=== PATIENT | female | born 1965 | race Caucasian/White ===

== ENCOUNTER 2020-06-21 11:27 | Outpatient (REF) | payer BC, SELFPAY | END 2020-06-21 11:28 | disposition home or self-care (01) | LOC: HO.HMGCLDS 11:27 | PROVIDERS: PCP Nurse Practitioner Family; Visit Provider Internal Medicine | DX: Z20.828 Contact with and (suspected) exposure to other viral communicable diseases (principal) | CPT/HCPCS: C9803; U0003 ==

== ENCOUNTER 2020-06-27 13:06 | Day surgery (SDC) | payer BC, SELFPAY ==
[2020-06-21 15:26] VITALS: BMI 23.0
--- NOTE | 2020-06-26 09:40 | HO.ANESPROP2 ---
Documented by User: Stephanie Baker 06/26/20 09:41 HPI - Anesthesia Eval Consult details Narrative: 54yo F for Colonoscopy [facility] Past Medical History Medical History Arthritis GERD (gastroesophageal reflux disease) History of palpitations History of postoperative nausea and vomiting Hx of malignant melanoma Lab test negative for COVID-19 virus Surgical History Surgical History H/O colonoscopy Hx of arthroscopy of knee Hx of breast augmentation Hx of melanoma excision Social History Social History Smoking Status: Former smoker Smoked in Last 30 Days: No Smoking Quit Date: age 19 Use of substances other than those prescribed or required for medical reasons: No Advance Directives Information Provided: No Recently lost weight without trying: No Meds Allergies Allergy/AdvReac Type Severity Reaction Status Date / Time No Known Allergies Allergy Verified 06/21/20 15:33 Home Medications Medication Instructions Recorded Confirmed Type fluticasone propionate [Flonase] 1 spray INTRANASAL DAILY PRN 06/21/20 06/21/20 History omeprazole magnesium [Prilosec OTC] 20 mg PO DAILY PRN 06/21/20 06/21/20 History Exam Exam Date and Time: June 26, 2020 0940 Height,Weight and Vital Signs: Height 5 ft Weight 53.524 kg Pertinent Lab Results Pertinent Lab Results: Laboratory Tests 04/03/20 08:05 Sodium 139 Potassium 4.7 Chloride 105 BUN 16 Creatinine 0.77 Assessment and Plan Assessment Anesthesia Assessment: Chart Reviewed Documented by User: Lang Salomon MD 06/27/20 13:40 [facility] Past Medical History Medical History Arthritis GERD (gastroesophageal reflux disease) History of palpitations History of postoperative nausea and vomiting Hx of malignant melanoma Lab test negative for COVID-19 virus Surgical History Surgical History H/O colonoscopy Hx of arthroscopy of knee Hx of breast augmentation Hx of melanoma excision Social History Social History Smoking Status: Former smoker Smoked in Last 30 Days: No Smoking Quit Date: age 19 Use of substances other than those prescribed or required for medical reasons: No Advance Directives Information Provided: No Recently lost weight without trying: No Meds Allergies Allergy/AdvReac Type Severity Reaction Status Date / Time No Known Allergies Allergy Verified 06/21/20 15:33 Home Medications Medication Instructions Recorded Confirmed Type fluticasone propionate [Flonase] 1 spray INTRANASAL DAILY PRN 06/21/20 06/21/20 History omeprazole magnesium [Prilosec OTC] 20 mg PO DAILY PRN 06/21/20 06/21/20 History Exam Airway Mallampati Class: II TM Dist: >3cm Neck ROM: Full Loose/Missing/Broken Teeth: No Heart: rrr Lungs: nl Other: ao Assessment and Plan Assessment Anesthesia Assessment: Anesthesia Plan Discussed and Chart Reviewed Final Anesthetic Review NPO: Yes ASA Class: III Final Preanesthetic Review: No Changes in Pt Med Stat, Meds/Allgs Chart Reviewed, Consent Obtained/Reviewed and Anes Risks/Benef Reviewed Patient Risk: Low Procedure Risk: Low Anesthetic Plan Anesthetic Plan: MAC: Disposition: Standard PACU
[2020-06-27] MEDS: Scopolamine 1.5 MG PATCH.TD.3 TRANSDERMA (13:26)
[2020-06-27 13:32] VITALS: BP 115/72; PULSE 69; RESP 18; TEMP 36.8; O2SAT 100
--- NOTE | 2020-06-27 13:50 | MHC.SHP ---
Pre-Procedural Eval Section B Chief Complaint: Altered Bowel Functions Details of Present Illness: FH aneurysms Relevant Family History (Specify if Yes): Yes Relevant Social History: None Medical History: Significant History (melanoma) History of Previous Operations: Relevant previous surgery/procedure and date(s) (melanoma excision,arthroscopy) Allergies: Allergies Allergy/AdvReac Type Severity Reaction Status Date / Time No Known Allergies Allergy Verified 06/21/20 15:33 Review of Systems Sugical H&P ROS: Negative: Constitution, Cardiovascular, Respiratory, Neurological, Psychiatric, Hem-Onc, Allergic/Immunologic, Gastrointestinal, Genitourinary, Musculoskeletal, Integumentary, Endocrine and Eyes/Ears/Nose/Throat Exam Surgical H&P Exam: Normal: HEENT, Normal: Heart, Normal: Lungs, Normal: Extremities, Normal: Abdomen, Normal: Skin and Normal: Neurological Plan Diagnosis/Plan: Unchanged Patient has been examined and remains a candidate for the planned procedure
[2020-06-27] MEDS: Lactated Ringers 1,000 ML 100 ML IVCONT (13:52)
--- NOTE | 2020-06-27 13:52 | P.OP_ITS ---
Operative Note Operative Note Date of Service: 06/27/20 Narrative: Operative Information Procedure Description: Colonoscopy COLONOSCOPY Instrument: Olympus variable stiffness pediatric scope 190L Colonoscopy Monitoring: Vital signs and clinical assessment, continuous EKG monitoring, Pulse oximetry, Carbon Dioxide monitoring and blood pressure monitoring were done throughout the procedure. Colon withdrawal time was 6 minutes. Procedure: The patient was placed in the left lateral decubitis position and pre-procedure medications were administered. After a digital rectal examination of the ano-rectum, the video colonoscope was inserted into the rectum and advanced through the colon to the cecum/TI. The colonoscope was slowly withdrawn in a retrograde panoramic fashion and the colon mucosa was carefully examined including a retroflexed view of the rectum. Findings and interventions are described below. Procedure Difficulty:easy Findings: Terminal Ileum-normal Cecum:normal Ascending Colon: normal Transverse Colon -normal Descending Colon:normal Sigmoid Colon: normal Rectum: Retroflexion with small internal hemorrhoids, grade I Anorectum - normal Colon preparation: [place] Bowel Preparation Scale Right colon; 3 Transverse colon: 3 Left colon; 3 (0 = Unprepared colon segment with mucosa not seen due to solid stool that cannot be cleared. 1 = Portion of mucosa of the colon segment seen, but other areas of the colon segment not well seen due to staining, residual stool and/or opaque liquid. 2 = Minor amount of residual staining, small fragments of stool and/or opaque liquid, but mucosa of colon segment seen well. 3 = Entire mucosa of colon segment seen well with no residual staining, small fragments of stool or opaque liquid) Impression and Post Procedure Diagnosis: internal hemorrhoids Plan: High fiber diet leaflet Avoid straining at stool, epsom salts and sitz bath prn, anusol supps or cream prn Repeat Colonoscopy in 10 years or earlier if clinically indicated Above findings were reviewed with the patient and relevant handouts were provided if indicated.
--- NOTE | 2020-06-27 13:52 | PM.OP ---
Brief Operative Note Date of Service: 06/27/20 Pre-op diagnosis: colon screen Post-op diagnosis: same Procedure: see op note Surgeon: Blanca Rios MD Anesthesia: MAC Estimated blood loss (mL): 0 Condition: stable Disposition: PACU
[2020-06-27 14:15] VITALS: BP 101/58; PULSE 72; RESP 16; TEMP 36.1; O2SAT 99
[2020-06-27 14:30] VITALS: BP 115/75; PULSE 69; RESP 16; O2SAT 99
== END 2020-06-27 15:08 | disposition home or self-care (01) ==
PROVIDERS: PCP Nurse Practitioner Family; Visit Provider Internal Medicine Gastroenterology
PROC: 0DJD8ZZ Inspection of Lower Intestinal Tract, Via Natural or Artificial Opening Endoscopic (ICD-10-PCS; CPT 45378; principal; 2020-06-27 14:10)
DX: R19.4 Change in bowel habit (principal); K64.0 First degree hemorrhoids; K21.9 Gastro-esophageal reflux disease without esophagitis; Z85.820 Personal history of malignant melanoma of skin; Z87.891 Personal history of nicotine dependence; Z79.899 Other long term (current) drug therapy
CPT/HCPCS: 45378

== ENCOUNTER → 2020-07-25 08:56 | Outpatient (BNVA) | payer BC, SELFPAY | PROVIDERS: PCP Nurse Practitioner Family; Visit Provider Physician Assistant | DX: Z76.89 Persons encountering health services in other specified circumstances (principal) ==

== ENCOUNTER 2021-02-04 08:23 | Outpatient (REF) | payer BC, SELFPAY ==
[2021-02-04 12:02] LABS: Alanine Aminotransferase 16 U/L (0-31); Alkaline Phosphatase 60 U/L (39-117); Anion Gap 13 (12-20); Aspartate Amino Transferase 15 U/L (5-31); Bilirubin Total 1.2 mg/dL (0.0-1.0); Blood Urea Nitrogen 17 mg/dL (9-16); Calcium 8.8 mg/dL (8.4-10.2); Carbon Dioxide 25 mmol/L (22-29); Chloride 107 mmol/L (96-108); Cholesterol 151 mg/dL; Estimated Glomerular Filt Rate > 60; Glucose Fasting 93 mg/dL (60-99); HDL Cholesterol 69 mg/dL; LDL Cholesterol Calculated 67 mg/dl; Potassium 4.5 mmol/L (3.3-5.1); Sodium 140 mmol/L (135-145); Total Protein 6.6 g/dL (6.5-8.0); Triglycerides 77 mg/dL
[2021-02-04 12:09] LABS: TSH reflex Free T4 1.46 uIU/mL (0.32-4.0); Vitamin D 25-OH Total 30.3 ng/mL (>30)
== END 2021-02-04 08:24 | disposition home or self-care (01) ==
LOC: HO.HMGCLDS 08:23
PROVIDERS: PCP Nurse Practitioner Family; Visit Provider Nurse Practitioner Family
DX: Z00.00 Encounter for general adult medical examination without abnormal findings (principal); Z78.0 Asymptomatic menopausal state
CPT/HCPCS: 36415; 80053; 80061; 82306; 84443

== ENCOUNTER 2021-07-01 08:19 | Outpatient (REF) | payer BC, SELFPAY ==
[2021-07-01 11:45] LABS: Appearance Urine CLOUDY; Color Urine YELLOW; Glucose Urine UA NEG (NEG); Leukocyte Esterase Urine NEG (NEG); Nitrite Urine NEG (NEG); Specific Gravity - Urine 1.025 (1.005-1.025); UACC Culture Trigger NO; Urine Blood TRACE (NEG); Urine Ketones NEG (NEG); Urine Protein NEG (NEG-TRACE)
[2021-07-01 12:03] LABS: Alanine Aminotransferase 19 U/L (0-31); Albumin Level 4.2 g/dL (3.5-5.0); Alkaline Phosphatase 58 U/L (39-117); Anion Gap 14 (12-20); Aspartate Amino Transferase 15 U/L (5-31); Bacteria Urine 1+ /LPF; Bilirubin Total 0.8 mg/dL (0.0-1.0); Blood Urea Nitrogen 14 mg/dL (9-16); Calcium 9.8 mg/dL (8.4-10.2); Calcium Oxalate Crystals Urine 1+ /LPF; Carbon Dioxide 24 mmol/L (22-29); Chloride 105 mmol/L (96-108); Cholesterol 198 mg/dL; Estimated Glomerular Filt Rate > 60; Glucose Fasting 96 mg/dL (60-99); HDL Cholesterol 71 mg/dL; LDL Cholesterol Calculated 109 mg/dl; Potassium 4.5 mmol/L (3.3-5.1); Sodium 138 mmol/L (135-145); Squamous Epithelial Cell Urine 2+ /LPF; Total Protein 7.2 g/dL (6.5-8.0); Triglycerides 92 mg/dL
[2021-07-01 12:04] LABS: Mucus Urine TRACE /LPF; WBC Urine 0-2 /HPF (0-4)
[2021-07-01 12:09] LABS: TSH reflex Free T4 1.39 uIU/mL (0.32-4.0)
== END 2021-07-01 08:20 | disposition home or self-care (01) ==
LOC: HO.HMGCLDS 08:19
PROVIDERS: Visit Provider Nurse Practitioner Family
DX: Z00.00 Encounter for general adult medical examination without abnormal findings (principal)
CPT/HCPCS: 36415; 80053; 80061; 81001; 84443

== ENCOUNTER 2021-07-08 14:50 | Outpatient (REF) | payer BC, SELFPAY ==
--- NOTE | ~2021-07-08 | MM_ITS ---
EXAMINATION: BONE DENSITOMETRY CLINICAL INDICATION: Asymptomatic menopausal state. COMPARISON: None (current study represents initial baseline exam). TECHNIQUE: Using a VidAngel DXA System (software version: 13.1) manufactured by [employer], dual-energy x-ray absorptiometry was performed of the lumbar spine and left hip. The images are of good technical quality. Summary results are attached. FINDINGS: AP SPINE L1-L4: BMD 1.149 g/cm2, Z-score 0.8, T-score -0.3, normal. LEFT FEMUR, NECK: BMD 0.738 g/cm2, Z-score -1.0, T-score -2.2, osteopenia. LEFT FEMUR, TOTAL: BMD 0.819 g/cm2, Z-score -0.6, T-score -1.5, osteopenia. IDENTIFIED RISK FACTORS: Menopause, family history (parental hip fracture), history of fracture (adult), rheumatoid arthritis. HISTORY OF FRACTURE: Clavicle. MEDICATIONS: Calcium or multivitamin, ERT/SERMS. MM/XR DEXA axial skeleton IMPRESSION: 1. DIAGNOSIS: Osteopenia based on the lowest T-score value of -2.2 in the femoral neck applying World Health Organization criteria. 2. 10-YEAR FRACTURE RISK PREDICTION, FRAX: Major osteoporotic fracture (clinical spine, forearm, hip or shoulder) 33.5%. Hip fracture 3.5%. 3. Treatment Recommendations: NOF guidelines recommend consideration for treatment in postmenopausal women and men age 50 and older presenting with the following: -A hip or vertebral (clinical or morphometric) fracture. -T-score less than or equal to -2.5 at the femoral neck or spine after appropriate evaluation to exclude secondary causes. -Low bone mass at the hip or spine and a 10-year fracture probability by FRAX of greater than or equal to 3% for hip fracture or greater than or equal to 20% for major osteoporotic fracture based on the [place] adapted WHO algorithm. 4. Other Recommendations: All treatment decisions require clinical judgment and consideration of individual patient factors, including patient preferences, comorbidities, previous drug use, risk factors not captured in the FRAX model (e.g. frailty, falls, vitamin D deficiency, increased bone turnover, interval significant decline in bone density) and possible under or overestimation of fracture risk by FRAX. Additional medical evaluation for secondary cause of low bone mineral density may be appropriate. FUTURE SCAN RECOMMENDATION: People with diagnosed cases of osteoporosis or at high risk for fracture should have regular bone mineral density tests. For patients eligible for Medicare, routine testing is allowed once every 2 years. The testing frequency can be increased to one year for patients who have rapidly progressing disease, those who are receiving or discontinuing medical therapy to restore bone mass, or have additional risk factors.
== END 2021-07-08 14:51 | disposition home or self-care (01) ==
LOC: HO.MAMMO 14:50
PROVIDERS: Visit Provider Nurse Practitioner Family
DX: Z13.820 Encounter for screening for osteoporosis (principal); M85.80 Other specified disorders of bone density and structure, unspecified site; Z78.0 Asymptomatic menopausal state; M06.9 Rheumatoid arthritis, unspecified; Z87.81 Personal history of (healed) traumatic fracture; Z79.899 Other long term (current) drug therapy
CPT/HCPCS: 77080

== ENCOUNTER 2022-01-28 13:43 | Outpatient (REF) | payer BC, SELFPAY ==
[2022-01-29 17:28] LABS: H Pylori Breath Test Negative (Negative)
== END 2022-01-28 13:44 | disposition home or self-care (01) ==
LOC: HO.LNP 13:43
PROVIDERS: Visit Provider Physician Assistant
DX: A04.8 Other specified bacterial intestinal infections (principal)
CPT/HCPCS: 83013

== ENCOUNTER 2022-04-09 07:17 | Outpatient (REF) | payer OTHER, SELFPAY ==
[2022-04-09 07:23] LABS: MANUAL DIFF FLAG NO
[2022-04-09 07:40] LABS: Basophils Absolute Auto 0.1 X10*3/uL (0.0-0.2); Basophils Percent Auto 0.9 % (0-2); Eosinophils Absolute Auto 0.2 X10*3/uL (0.0-0.4); Eosinophils Percent Auto 2.7 % (0-4); Hematocrit 40.3 % (37.0-47.0); Hemoglobin 13.3 g/dl (12.0-16.0); Imm Gran Abs Auto 0.02 X10*3/uL (0.00-0.03); Imm Gran Pct Auto 0.3 % (0.0-0.4); Lymphocytes Absolute Auto 2.1 X10*3/uL (1.2-4.9); Lymphocytes Percent Auto 35.2 % (20-40); Mean Corpuscular Volume 87.8 fL (80.0-98.0); Mean Platelet Volume 9.8 fL (9.4-12.3); Monocytes Absolute Auto 0.5 X10*3/uL (0.1-1.2); Neutrophils Absolute Auto 3.1 x10*3/uL (2.0-8.3); Neutrophils Percent Auto 52.9 % (45-73); Platelet Count 282 X10*3/uL (160-400); Red Blood Count 4.59 X10*6/uL (4.20-5.50); Red Cell Distribution Width 12.6 % (11.0-16.0); White Blood Count 5.9 X10*3/uL (4.8-10.8)
[2022-04-09 08:33] LABS: Alanine Aminotransferase 20 U/L (0-31); Alkaline Phosphatase 57 U/L (39-117); Anion Gap 15 (12-20); Aspartate Amino Transferase 18 U/L (5-31); Bilirubin Total 0.9 mg/dL (0.0-1.0); Blood Urea Nitrogen 10 mg/dL (9-16); Calcium 9.2 mg/dL (8.4-10.2); Carbon Dioxide 21 mmol/L (22-29); Chloride 108 mmol/L (96-108); Cholesterol 191 mg/dL; Estimated Glomerular Filt Rate > 60; Glucose Fasting 87 mg/dL (60-99); HDL Cholesterol 68 mg/dL; LDL Cholesterol Calculated 101 mg/dl; Potassium 4.1 mmol/L (3.3-5.1); Sodium 140 mmol/L (135-145); Total Protein 6.7 g/dL (6.5-8.0); Triglycerides 113 mg/dL
[2022-04-09 08:42] LABS: Appearance Urine Clear; Color Urine Yellow; Glucose Urine UA Negative (Negative); Leukocyte Esterase Urine Negative (Negative); Nitrite Urine Negative (Negative); Specific Gravity - Urine 1.015 (1.005-1.025); Urine Blood Negative (Negative); Urine Ketones Negative (Negative); Urine Protein Negative (Neg-Trace)
[2022-04-09 08:55] LABS: Vitamin D 25-OH Total 42.4 ng/mL (>30)
== END 2022-04-09 07:18 | disposition home or self-care (01) ==
LOC: HO.LAB 07:17
PROVIDERS: PCP Nurse Practitioner Family; Visit Provider Nurse Practitioner Family
DX: Z78.0 Asymptomatic menopausal state (principal)
CPT/HCPCS: 36415; 80053; 80061; 81003; 82306; 84443; 85025

== ENCOUNTER 2022-12-10 07:28 | Outpatient (REF) | payer OTHER, SELFPAY ==
[2022-12-10 11:17] LABS: MANUAL DIFF FLAG NO
[2022-12-10 11:25] LABS: Appearance Urine Cloudy; Color Urine Yellow; Glucose Urine UA Negative (Negative); Leukocyte Esterase Urine Moderate (2+) (Negative); Nitrite Urine Negative (Negative); PH 5.5 (5.0-9.0); UMIC TRIGGER UACC YES; Urine Blood Small (1+) (Negative); Urine Ketones 15 mg/dL (Negative); Urine Protein Negative (Neg-Trace)
[2022-12-10 11:34] LABS: Basophils Absolute Auto 0.1 X10*3/uL (0.0-0.2); Basophils Percent Auto 0.9 % (0-2); Eosinophils Absolute Auto 0.1 X10*3/uL (0.0-0.4); Eosinophils Percent Auto 2.4 % (0-4); Hematocrit 42.9 % (37.0-47.0); Hemoglobin 13.7 g/dl (12.0-16.0); Imm Gran Abs Auto 0.01 X10*3/uL (0.00-0.03); Imm Gran Pct Auto 0.2 % (0.0-0.4); Lymphocytes Percent Auto 36.6 % (20-40); Mean Corpuscular HGB Conc 31.9 g/dl (31.0-35.0); Mean Corpuscular Hemoglobin 28.4 pg (27.0-33.0); Mean Platelet Volume 10.6 fL (9.4-12.3); Monocytes Absolute Auto 0.5 X10*3/uL (0.1-1.2); Monocytes Percent Auto 8.7 % (2-11); Neutrophils Absolute Auto 2.8 x10*3/uL (2.0-8.3); Neutrophils Percent Auto 51.2 % (45-73); Platelet Count 304 X10*3/uL (160-400); Red Blood Count 4.82 X10*6/uL (4.20-5.50); Red Cell Distribution Width 12.4 % (11.0-16.0); White Blood Count 5.4 X10*3/uL (4.8-10.8)
[2022-12-10 11:46] LABS: Bacteria Urine 4+ (None Seen); RBC Urine 0-2 /HPF (0-2); UACC Culture Trigger YES; WBC Urine >50 /HPF (0-5)
[2022-12-10 12:47] LABS: Alanine Aminotransferase 19 U/L (0-31); Albumin Level 3.9 g/dL (3.5-5.0); Alkaline Phosphatase 51 U/L (39-117); Anion Gap 12 (12-20); Aspartate Amino Transferase 15 U/L (5-31); Bilirubin Total 1.1 mg/dL (0.0-1.0); Blood Urea Nitrogen 11 mg/dL (9-16); Calcium 9.3 mg/dL (8.4-10.2); Carbon Dioxide 24 mmol/L (22-29); Chloride 108 mmol/L (96-108); Cholesterol 177 mg/dL; Estimated Glomerular Filt Rate > 60; Glucose Fasting 85 mg/dL (60-99); HDL Cholesterol 62 mg/dL; LDL Cholesterol Calculated 99 mg/dl; Potassium 4.5 mmol/L (3.3-5.1); Sodium 139 mmol/L (135-145); Total Protein 6.4 g/dL (6.5-8.0); Triglycerides 82 mg/dL
[2022-12-10 12:51] LABS: TSH reflex Free T4 2.49 uIU/mL (0.32-4.0); Vitamin D 25-OH Total 77.5 ng/mL (>30)
== END 2022-12-10 07:29 | disposition home or self-care (01) ==
LOC: HO.HMGCLDS 07:28
PROVIDERS: PCP Nurse Practitioner Family; Visit Provider Nurse Practitioner Family
DX: Z00.00 Encounter for general adult medical examination without abnormal findings (principal); Z78.0 Asymptomatic menopausal state
CPT/HCPCS: 36415; 80053; 80061; 81001; 82306; 84443; 85025; 87086; 87147

== ENCOUNTER 2023-08-16 13:25 | Outpatient (AMB) | payer OTHER, SELFPAY ==
--- NOTE | 2023-08-16 13:31 | MHC.PC.OV ---
Vital Signs 08/16/23 13:33 Height 5 ft Weight 127 lb BMI 24.8 BP 150/90 H Blood Pressure Location Rt brachial Position Sitting Pulse 83 Pulse Source Pulse Oximeter Pulse Oximetry (%) 99 Oxygen Delivery Method Room Air Intake Visit Reasons: Annual PE Intake Note: Patient here for physical exam. Menopause issues, weight gain and blood pressure concerns. Last mammo: 2022 normal Last pap:06/2023 normal Allergies No Known Allergies Allergy (Verified 08/16/23 13:37) Medication List - Last Reconciled 08/16/23 by DEBORAH Mendoza-ADRIANA famotidine (Pepcid) 40 mg PO BEDTIME fluticasone propionate 50 mcg/actuation 1 spray intranasal DAILY PRN levonorgestrel (Mirena) intrauterine norethindrone ac-eth estradiol 1-5 mg-mcg 1 tab PO DAILY propranolol ER 60 mg PO BEDTIME Tobacco use date assessed: 08/16/23 Dental Screening Dental Screen Date: 08/16/23 Did you have a dental visit in the last 12 months?: Yes Did you have a dental problem in the last 6 months where you did not have access to dental care?: No Was dental information given to patient?: Patient has dentist HPI Annual PE HPI Details Pt is here for a PE. Will order labs. Colon screen is up to date. Mammo is up to date. Has a assistant store manager trainee. Pt's blood pressure is elevated today. She is very anxious. Pt reports palpitations as well. Will start propranolol 60mg. Denies chest pain, shortness of breath, headache, dizziness, and blurred vision. ? anxiety component/menopausal component as well. Pt will also follow up with her [employer]IL [employer] BR[employer] MACHINE [facility] Medical History Arthritis GERD (gastroesophageal reflux disease) History of palpitations History of postoperative nausea and vomiting Hx of malignant melanoma Lab test negative for COVID-19 virus Patellofemoral chondrosis of right knee Sinusitis Surgical History H/O colonoscopy Hx of arthroscopy of knee Hx of breast augmentation Hx of melanoma excision Family History Other Mental health disorder Social History Housing: House Patient Tobacco Use Status: Former Tobacco user (quit at age 20 ) Tobacco use type: Cigarette Years Smoked: 2 years e-Cigarette/Vaping Use: Never Used Second Hand Smoke Exposure: No Current occupational status: employed Cognitive needs: No Hearing needs: No Vision needs: No Questionnaire Thrive Questionnaire Date Thrive assessed: 04/14/22 AUDIT C Alcohol Use Questionnaire (AUDIT-C) 1. How often do you have a drink containing alcohol?: 2-4 times a month 2. How many drinks containing alcohol do you have on a typical day when you are drinking?: 1 or 2 3. How often do you have six or more drinks on one occasion?: Never Total Score: 2 Score Reviewed/Action Taken: No CAROLYN-7 AMB Questionnaire CAROLYN-7 Date CAROLYN - 7 assessed: 04/14/22 Source: Developed by Drs. Christofer Enrique, Alexa Hallman, Chaparro Muñoz and colleagues, with an educational lashae from [employer]. Review of Systems Const Denies chills and Denies fever(s) Eyes Denies blurry vision ENT Denies vertigo, Denies dizziness and Denies sore throat Card Denies chest pain at rest, Denies chest pain with activity, Denies diaphoresis, Denies dyspnea and Denies dyspnea on exertion Resp Denies cough, Denies dyspnea, Denies dyspnea on exertion and Denies wheezing GI Denies abdominal pain, Denies melena, Denies hematochezia, Denies constipation, Denies diarrhea and Denies loose stools Denies hematuria Musc Denies numbness and Denies tingling Skin/Breast Denies lesions Neuro Denies vertigo, Denies dizziness, Denies numbness and Denies tingling Psych Denies anxiety, Denies depression, Denies homicidal ideation, Denies suicidal ideation and Denies other (substance abuse) Aller/Immun Denies wheezing Physical exam (Primary Care) Vital Signs: Last Vital Signs Pulse 83 08/16/23 13:33 BP 150/90 H 08/16/23 13:33 Pulse Ox 99 08/16/23 13:33 Oxygen Delivery Method Room Air 08/16/23 13:33 BMI result Body Mass Index 24.8 Tobacco/Smoking Status: Tobacco use Status Tobacco use date assessed 08/16/23 08/16/23 13:41 Patient Tobacco Use Status Former Tobacco user (quit at 08/16/23 13:33 age 20 ) Tobacco use type Cigarette 08/16/23 13:41 e-Cigarette/Vaping Use Never Used 08/16/23 13:33 Thrive Assessment: Date of Thrive Assessment Date Thrive assessed 04/14/22 08/16/23 13:33 Const General: cooperative Nutritional Appearance: well nourished Orientation/consciousness: patient oriented x3 HENMT Head: Yes normal to inspection, Yes normocephalic and Yes atraumatic Ears: TM's normal bilaterally Eyes General: appearance normal, both eyes and all related structures Alignment and Position: alignment normal and position normal Neck Neck: Yes normal visual inspection and Yes no lymphadenopathy Thyroid: Thyroid normal Resp Effort & Inspection: normal respiratory effort Auscultation: clear to auscultation bilaterally Cardio Rate: regular rate Rhythm: regular rhythm Heart sounds: S1 normal heart sound present, S2 normal heart sound present and no murmurs GI Palpation (GI): Soft to palpation and nontender Auscultation: normal bowel sounds Skin Rashes: no rashes Neuro General: patient oriented x3, moves all extremities, no focal motor deficits and deep tendon reflexes 2+ bilaterally Romberg Test: Negative Psych Appearance: grossly normal Mental Status: mental status grossly normal Speech and movement: Normal speech and movement present Affect: normal affect Attitude: cooperative Thought process: Normal thought process present Thought content: Normal thought content present Insight: Good insight present (Psych) Judgement: Good judgement present (Psych) Assessment and Plan Assessment & Plan (1) Physical exam: Code(s): Z00.00 - Encounter for general adult medical examination without abnormal findings Plan: Labs ordered (2) Vitamin D deficiency: Code(s): E55.9 - Vitamin D deficiency, unspecified Plan: Labs ordered (3) HTN (hypertension): Code(s): I10 - Essential (primary) hypertension Plan: starting propranolol (4) Palpitations: Code(s): R00.2 - Palpitations Plan The patient agreed to the use of a medical physics researcher for this encounter. Scribed for NOHEMI Ruiz by greyson Valera scribe, on 08/16/2023 at 13:40 EST. Orders: Orders Complete Blood Count Auto Diff Today Z00.00 - Encounter for general adult medical examination without abnormal findings Comprehensive [place]. Panel Fast Today Z00.00 - Encounter for general adult medical examination without abnormal findings UA CC w/rflx Micro + Cult Today Z00.00 - Encounter for general adult medical examination without abnormal findings Lipid Panel Today Z00.00 - Encounter for general adult medical examination without abnormal findings Vitamin D 25-OH Total Today E55.9 - Vitamin D deficiency, unspecified TSH reflex Free T4 Today Z00.00 - Encounter for general adult medical examination without abnormal findings Medications: New propranolol ER 60 mg PO BEDTIME 90 caps 0RF Coding Level of Care Code Est Pt Prev Care 40-64y(08237) Diagnoses Physical exam Z00.00 Vitamin D deficiency E55.9 HTN (hypertension) I10 Palpitations R00.2
[2023-08-16 13:33] VITALS: BP 150/90; PULSE 83; O2SAT 99; BMI 24.8
== END 2023-08-16 14:09 | disposition home or self-care (01) ==
PROVIDERS: PCP Nurse Practitioner Family; Visit Provider Nurse Practitioner Family
DX: Z00.00 Encounter for general adult medical examination without abnormal findings (principal); E55.9 Vitamin D deficiency, unspecified; I10 Essential (primary) hypertension; R00.2 Palpitations
CPT/HCPCS: 99396

== ENCOUNTER 2023-09-14 08:44 | Outpatient (AMB) | payer OTHER, SELFPAY ==
--- NOTE | 2023-09-14 07:06 | MHC.PC.OV ---
Intake Visit Reasons: Followup meds iPhone Allergies No Known Allergies Allergy (Verified 08/16/23 13:37) Medication List - Last Reconciled 09/14/23 by NOHEMI Mendoza famotidine (Pepcid) 40 mg PO BEDTIME fluticasone propionate 50 mcg/actuation 1 spray intranasal DAILY PRN levonorgestrel (Mirena) intrauterine norethindrone ac-eth estradiol 1-5 mg-mcg 1 tab PO DAILY prazosin 1 mg PO BEDTIME propranolol ER 60 mg PO BEDTIME Tobacco use date assessed: 08/16/23 HPI Followup meds iPhone HPI Details Pt c/o increased anxiety. She reports having panic attacks at night that wake her up out of a sleep. She also reports vivid dreams. Will send prazosin 1mg to try. Denies any SI and HI. Pt will contact me in approx 2 weeks with how the med is working. COUNT INCLUDES THE [facility] Medical History Patellofemoral chondrosis of right knee Sinusitis History of postoperative nausea and vomiting Hx of malignant melanoma Arthritis Lab test negative for COVID-19 virus GERD (gastroesophageal reflux disease) History of palpitations Surgical History H/O colonoscopy Hx of arthroscopy of knee Hx of breast augmentation Hx of melanoma excision Family History Other Mental health disorder Social History Housing: House Patient Tobacco Use Status: Former Tobacco user (quit at age 20 ) Tobacco use type: Cigarette Years Smoked: 2 years e-Cigarette/Vaping Use: Never Used Second Hand Smoke Exposure: No Current occupational status: employed Cognitive needs: No Hearing needs: No Vision needs: No Questionnaire Thrive Questionnaire Date Thrive assessed: 04/14/22 CAROLYN-7 AMB Questionnaire CAROLYN-7 Date CAROLYN - 7 assessed: 04/14/22 Source: Developed by Drs. Christofer Enrique, Alexa Hallman, Chaparro Muñoz and colleagues, with an educational lashae from [employer]. Review of Systems Const Reports as per HPI Physical exam (Primary Care) Tobacco/Smoking Status: Tobacco use Status Tobacco use date assessed 08/16/23 09/14/23 07:10 Patient Tobacco Use Status Former Tobacco user (quit at 09/14/23 07:10 age 20 ) Tobacco use type Cigarette 09/14/23 07:10 e-Cigarette/Vaping Use Never Used 09/14/23 07:10 Thrive Assessment: Date of Thrive Assessment Date Thrive assessed 04/14/22 09/14/23 07:10 Const General: cooperative Orientation/consciousness: patient oriented x3 Neuro General: patient oriented x3 Psych Appearance: grossly normal Mental Status: mental status grossly normal Speech and movement: Clear speech present Affect: normal affect Attitude: cooperative Thought process: Normal thought process present Thought content: Normal thought content present Insight: Good insight present (Psych) Judgement: Good judgement present (Psych) Telehealth Telehealth Location of provider rendering services: practice address Location of patient: address on file Patient Identification confirmed using: Name, : Yes Telehealth method: video Patient verbally consented to treatment: Yes Patient verbally consented to billing insurance company: Yes Patient informed of any privacy concerns related to visit: Yes Minutes spent on Phone/Video with Pt.: 10 Assessment and Plan Assessment & Plan (1) Panic attacks: Code(s): F41.0 - Panic disorder [episodic paroxysmal anxiety] Plan: start prazosin 1mg qhs. pt will contact me in approx 2 weeks with how she is doing Plan The patient agreed to the use of a manager medical for this encounter. Scribed for NOHEMI Ruiz by Haritha Rodriguez manager medical, on 09/14/2023 at 07:05 EST. Medications: New prazosin 1 mg PO BEDTIME 30 caps 2RF Coding Level of Care Code Tele Est Pt Level 3 (73538) Diagnoses Panic attacks F41.0
== END 2023-09-14 14:29 | disposition home or self-care (01) ==
LOC: HO.HMGC 08:44
PROVIDERS: PCP Nurse Practitioner Family; Visit Provider Nurse Practitioner Family
DX: F41.0 Panic disorder [episodic paroxysmal anxiety] (principal)
CPT/HCPCS: 99213

== ENCOUNTER 2023-10-15 07:40 | Outpatient (REF) | payer OTHER, SELFPAY ==
[2023-10-15 07:51] LABS: MANUAL DIFF FLAG NO
[2023-10-15 08:08] LABS: Appearance Urine Clear; Color Urine Yellow; Glucose Urine UA Negative (Negative); Leukocyte Esterase Urine Trace (Negative); Nitrite Urine Negative (Negative); PH 5.5 (5.0-9.0); Specific Gravity - Urine 1.025 (1.005-1.025); UMIC TRIGGER UACC YES; Urine Blood Trace (Negative); Urine Ketones Negative (Negative); Urine Protein Negative (Neg-Trace)
[2023-10-15 08:08] LABS: Basophils Absolute Auto 0.1 X10*3/uL (0.0-0.2); Basophils Percent Auto 0.9 % (0-2); Eosinophils Absolute Auto 0.1 X10*3/uL (0.0-0.4); Eosinophils Percent Auto 1.7 % (0-4); Hematocrit 41.7 % (37.0-47.0); Hemoglobin 13.4 g/dl (12.0-16.0); Imm Gran Abs Auto 0.02 X10*3/uL (0.00-0.03); Imm Gran Pct Auto 0.3 % (0.0-0.4); Lymphocytes Absolute Auto 1.9 X10*3/uL (1.2-4.9); Lymphocytes Percent Auto 32.7 % (20-40); Mean Corpuscular HGB Conc 32.1 g/dl (31.0-35.0); Mean Corpuscular Volume 87.2 fL (80.0-98.0); Mean Platelet Volume 9.8 fL (9.4-12.3); Monocytes Absolute Auto 0.5 X10*3/uL (0.1-1.2); Monocytes Percent Auto 8.9 % (2-11); Neutrophils Absolute Auto 3.2 x10*3/uL (2.0-8.3); Neutrophils Percent Auto 55.5 % (45-73); Platelet Count 284 X10*3/uL (160-400); Red Blood Count 4.78 X10*6/uL (4.20-5.50); Red Cell Distribution Width 12.4 % (11.0-16.0); White Blood Count 5.7 X10*3/uL (4.8-10.8)
[2023-10-15 08:13] LABS: Bacteria Urine 2+ (None Seen); UACC Culture Trigger YES; WBC Urine 21-50 /HPF (0-5)
[2023-10-15 08:41] LABS: Alanine Aminotransferase 20 U/L (0-31); Albumin Level 3.9 g/dL (3.5-5.0); Alkaline Phosphatase 51 U/L (39-117); Anion Gap 10 (12-20); Aspartate Amino Transferase 16 U/L (5-31); Bilirubin Total 0.9 mg/dL (0.0-1.0); Blood Urea Nitrogen 13 mg/dL (9-16); Calcium 9.1 mg/dL (8.4-10.2); Carbon Dioxide 26 mmol/L (22-29); Chloride 109 mmol/L (96-108); Cholesterol 186 mg/dL (<200); Estimated Glomerular Filt Rate > 60; Glucose Fasting 99 mg/dL (60-99); HDL Cholesterol 65 mg/dL (>40); LDL Cholesterol Calculated 103 mg/dL (<100); Potassium 3.8 mmol/L (3.3-5.1); Sodium 141 mmol/L (135-145); Total Protein 6.7 g/dL (6.5-8.0); Triglycerides 92 mg/dL (<150)
[2023-10-15 09:00] LABS: TSH reflex Free T4 2.52 uIU/mL (0.32-4.0); Vitamin D 25-OH Total 45.8 ng/mL (>30)
== END 2023-10-15 07:41 | disposition home or self-care (01) ==
LOC: HO.LAB 07:40
PROVIDERS: PCP Nurse Practitioner Family; Visit Provider Nurse Practitioner Family
DX: Z00.00 Encounter for general adult medical examination without abnormal findings (principal); E55.9 Vitamin D deficiency, unspecified; Z78.0 Asymptomatic menopausal state
CPT/HCPCS: 36415; 80053; 80061; 81001; 82306; 84443; 85025; 87086

== ENCOUNTER 2023-10-20 07:28 | Outpatient (REF) | payer OTHER, SELFPAY ==
[2023-10-20 11:41] LABS: Appearance Urine Clear; Color Urine Yellow; Glucose Urine UA Negative (Negative); Leukocyte Esterase Urine Negative (Negative); Nitrite Urine Negative (Negative); PH 5.5 (5.0-9.0); Specific Gravity - Urine 1.025 (1.005-1.025); Urine Blood Negative (Negative); Urine Ketones Negative (Negative); Urine Protein Negative (Neg-Trace)
== END 2023-10-20 07:29 | disposition home or self-care (01) ==
LOC: HO.HMGCLDS 07:28
PROVIDERS: PCP Nurse Practitioner Family; Visit Provider Nurse Practitioner Family
DX: R30.0 Dysuria (principal)
CPT/HCPCS: 81003; 87086

== ENCOUNTER 2023-10-20 08:02 | Outpatient (AMB) | payer OTHER, SELFPAY ==
[2023-10-20 08:12] VITALS: BP 138/82; PULSE 64; O2SAT 99; BMI 24.8
--- NOTE | 2023-10-20 08:12 | AM.OFFWIN_ITS ---
Intake Vital Signs 10/20/23 08:12 Height 5 ft Weight 127 lb BMI 24.8 BP 138/82 Blood Pressure Location Lt brachial Position Sitting Pulse 64 Pulse Source Pulse Oximeter Pulse Oximetry (%) 99 Intake Visit Reasons: EP back pain Intake Note: pt is here for co back pain, denies injury ongoing for 2 weeks and causing head ache in the back of her head Patient Tobacco Use Status: Former Tobacco user (quit at age 20 ) Allergies No Known Allergies Allergy (Verified 10/20/23 08:14) Do you need a note to return to daycare/school/sports/work: No HPI HPI Comments History of Present Illness Details 58 y/o female who presents to walk in [facility] with c/o back pain x 2 weeks. Pt reports pain is located thoracic region midline. Denies any injury or trauma. Reports using Heat pad with good relief. Denies bowel or bladder problems. [facility] Medical History Patellofemoral chondrosis of right knee Sinusitis History of postoperative nausea and vomiting Hx of malignant melanoma Arthritis Lab test negative for COVID-19 virus GERD (gastroesophageal reflux disease) History of palpitations Surgical History H/O colonoscopy Hx of arthroscopy of knee Hx of breast augmentation Hx of melanoma excision Family History Other Mental health disorder Social History Housing: House Patient Tobacco Use Status: Former Tobacco user (quit at age 20 ) Tobacco use type: Cigarette Years Smoked: 2 years e-Cigarette/Vaping Use: Never Used Second Hand Smoke Exposure: No Current occupational status: employed Cognitive needs: No Hearing needs: No Vision needs: No Review of Systems Const All systems reviewed & are unremarkable except as noted in HPI and below Physical Exam Vital Signs: Last Vital Signs Pulse 64 10/20/23 08:12 BP 138/82 10/20/23 08:12 Pulse Ox 99 10/20/23 08:12 BMI result Body Mass Index 24.8 Const General: comfortable and no acute distress Orientation/consciousness: patient oriented x3 Back/Spine/Pelvis Cervical Spine: cervical ROM normal Thoracic/Lumbar Spine: thoraco-lumbar ROM normal Neuro General: patient oriented x3, gait normal and moves all extremities Psych Speech and movement: Clear speech present Assessment & Plan Assessment & Plan (1) Back pain: Code(s): M54.9 - Dorsalgia, unspecified Qualifiers: Back pain location: thoracic back pain Back pain laterality: midline Chronicity: acute Qualified Code(s): M54.6 - Pain in thoracic spine Plan: - OTC Acetaminophen or NSAIDs - Heat pad - Rest - F/U with PCP for PT if indicated. Coding Level of Care Code Est Pt Level 3 (78272) Diagnoses Acute midline thoracic back pain M54.6 Back pain location: thoracic back pain Back pain laterality: midline Chronicity: acute Time Spent (min) 15
== END 2023-10-20 09:14 | disposition home or self-care (01) ==
PROVIDERS: PCP Nurse Practitioner Family; Visit Provider Nurse Practitioner Family
DX: M54.6 Pain in thoracic spine (principal)
CPT/HCPCS: 99213

== ENCOUNTER 2023-11-09 07:45 | Outpatient (AMB) | payer OTHER, SELFPAY ==
--- NOTE | 2023-11-09 07:25 | MHC.PC.OV ---
Intake Visit Reasons: follow up NN BP check Allergies No Known Allergies Allergy (Verified 11/09/23 07:27) Medication List - Last Reconciled 11/09/23 by DEBORAH MendozaADRIANA fluticasone propionate 50 mcg/actuation 1 spray intranasal DAILY PRN levonorgestrel (Mirena) intrauterine norethindrone ac-eth estradiol 1-5 mg-mcg 1 tab PO DAILY propranolol ER 60 mg PO BEDTIME Tobacco use date assessed: 08/16/23 Dental Screening Dental Screen Date: 08/16/23 HPI follow up NN BP check HPI Details HTN: Blood pressure is managed with propranolol 60mg. Pt reports that her blood pressure at home is stable. Denies chest pain, shortness of breath, headache, dizziness, and blurred vision. [facility] Medical History Patellofemoral chondrosis of right knee Sinusitis History of postoperative nausea and vomiting Hx of malignant melanoma Arthritis Lab test negative for COVID-19 virus GERD (gastroesophageal reflux disease) History of palpitations Surgical History H/O colonoscopy Hx of arthroscopy of knee Hx of breast augmentation Hx of melanoma excision Family History Other Mental health disorder Social History Housing: House Patient Tobacco Use Status: Former Tobacco user (quit at age 20 ) Tobacco use type: Cigarette Years Smoked: 2 years e-Cigarette/Vaping Use: Never Used Second Hand Smoke Exposure: No Current occupational status: employed Cognitive needs: No Hearing needs: No Vision needs: No Questionnaire Thrive Questionnaire Date Thrive assessed: 04/14/22 CAROLYN-7 AMB Questionnaire CAROLYN-7 Date CAROLYN - 7 assessed: 04/14/22 Source: Developed by Drs. Christofer Enrique, Alexa Hallman, Chaparro Muñoz and colleagues, with an educational lashae from [employer]. Review of Systems Const Reports as per HPI Physical exam (Primary Care) Tobacco/Smoking Status: Tobacco use Status Tobacco use date assessed 08/16/23 11/09/23 07:26 Patient Tobacco Use Status Former Tobacco user (quit at 11/09/23 07:26 age 20 ) Tobacco use type Cigarette 11/09/23 07:26 e-Cigarette/Vaping Use Never Used 11/09/23 07:26 Thrive Assessment: Date of Thrive Assessment Date Thrive assessed 04/14/22 11/09/23 07:26 Const General: cooperative Orientation/consciousness: patient oriented x3 Neuro General: patient oriented x3 Psych Appearance: grossly normal Mental Status: mental status grossly normal Speech and movement: Clear speech present Affect: normal affect Attitude: cooperative Thought process: Normal thought process present Thought content: Normal thought content present Insight: Good insight present (Psych) Judgement: Good judgement present (Psych) Telehealth Telehealth Location of provider rendering services: practice address Location of patient: address on file Patient Identification confirmed using: Name, : Yes Telehealth method: video Patient verbally consented to treatment: Yes Patient verbally consented to billing insurance company: Yes Patient informed of any privacy concerns related to visit: Yes Minutes spent on Phone/Video with Pt.: 20 Assessment and Plan Assessment & Plan (1) HTN (hypertension): Code(s): I10 - Essential (primary) hypertension Plan: continue current med regime Plan The patient agreed to the use of a medical doctor md/medical director for this encounter. Scribed for NOHEMI Ruiz by Haritha Rodriguez medical doctor md/medical director, on 11/09/2023 at 07:25 EST. Medications: Refilled propranolol ER 60 mg PO BEDTIME 90 caps 0RF Coding Level of Care Code Tele Est Pt Level 3 (28886) Diagnoses HTN (hypertension) I10
== END 2023-11-09 08:28 | disposition home or self-care (01) ==
LOC: HO.HMGC 07:45
PROVIDERS: PCP Nurse Practitioner Family; Visit Provider Nurse Practitioner Family
DX: I10 Essential (primary) hypertension (principal)
CPT/HCPCS: 99213

== ENCOUNTER → 2024-04-03 08:27 | Outpatient (REF) | payer OTHER, SELFPAY ==
--- NOTE | 2024-04-03 08:30 | HM_ITS ---
Conclusion: 1. Patient was monitored for total period of 2 days and 23 hours 2. Baseline was normal sinus rhythm with average heart of 70 beats per minute 3. No significant pauses or arrhythmias noted 4. Patient marked the counter 6 times correlating with sinus rhythm with symptoms reported of fluttering in her chest or heart racing MTDD
== END ==
LOC: HO.CARD 08:27
PROVIDERS: PCP Nurse Practitioner Family; Visit Provider Nurse Practitioner Family
DX: R00.2 Palpitations (principal)
CPT/HCPCS: 93242

== ENCOUNTER → 2024-04-03 08:30 | Outpatient (BNV) | payer OTHER, SELFPAY | PROVIDERS: PCP Nurse Practitioner Family; Visit Provider Internal Medicine Cardiovascular Disease | DX: R00.1 Bradycardia, unspecified (principal) | CPT/HCPCS: 93244 ==

== ENCOUNTER 2024-04-25 12:58 | Outpatient (AMB) | payer OTHER, SELFPAY ==
--- NOTE | 2024-04-25 13:01 | A.OFFVIS_ITS ---
Intake Visit Reasons: microscopic hematuria/UTI Intake Note: New Patient presents for initial visit for hematuria and uti Urology Medications: none Blood Thinner: none PVR: 0ml's School Age Program Teacher Required: No Accompanied by: Self / Same As Patient Allergies No Known Allergies Allergy (Verified 04/25/24 13:35) Medication List - Last Reconciled 04/25/24 by NOHEMI Zhang estrog-medroxyprogest liset 0.625-2.5 mg (Prempro) 1 tab PO DAILY fluticasone propionate 50 mcg/actuation 1 spray intranasal DAILY PRN levonorgestrel (Mirena) intrauterine propranolol ER 60 mg PO BEDTIME HPI Comments Details: Kerri is a very pleasant 58-year-old female patient of Dr. Vela. She has a past medical history of sinusitis, arthritis, and GERD. She presents to the office today as a new patient for microscopic hematuria. In discussion with the patient today she reports a longstanding history of urinary issues. She reports in her 40s she had episodes of recurrent urinary tract infections however these have since subsided and she has been without any urinary tract infections for over a year. She reports having followed up with her PCP at which time urinalysis noted microscopic hematuria and referral was made for urology for further assessment evaluation. When asked she denies any previous history of workplace chemical exposure. She does report a 3 year smoking history from the ages of [age] of social nicotine dependence. She otherwise denies any bothersome urinary issues. In review of patient's chart it appears microscopic hematuria has been intermittent since 2020. In office urinalysis results reviewed with the patient today 2+ microscopic hematuria. However patient has had urinalysis 04/30 and 10/30 that there was no microscopic hematuria noted. We discussed at length further microscopic hematuria workup to include retroperitoneal ultrasound, urine cytology, and in office cystoscopy for further assessment evaluation. We discussed at length potential causes of microscopic hematuria. When asked she denies urinary urgency, urinary frequency, incontinence, nocturia, hematuria, dysuria, foul smelling urine, changes to urinary stream, flank pain, fever, and or chills. She is happy with her current voiding parameters. She otherwise offers no other issues or concerns at this time. [facility] Medical History Patellofemoral chondrosis of right knee Sinusitis History of postoperative nausea and vomiting Hx of malignant melanoma Arthritis Lab test negative for COVID-19 virus GERD (gastroesophageal reflux disease) History of palpitations Surgical History H/O colonoscopy Hx of arthroscopy of knee Hx of breast augmentation Hx of melanoma excision Family History Other Mental health disorder Social History Housing: House Patient Tobacco Use Status: Former Tobacco user (quit at age 20 ) Tobacco use type: Cigarette Years Smoked: 2 years e-Cigarette/Vaping Use: Never Used Second Hand Smoke Exposure: No Current occupational status: employed Cognitive needs: No Hearing needs: No Vision needs: No Review of Systems Const All systems reviewed & are unremarkable except as noted in HPI and below Physical Exam Const General: cooperative, healthy appearing, comfortable, no acute distress, well developed, alert and awake Orientation/consciousness: patient oriented x3 Limitations: no limitations HEENT Head: Yes normal to inspection, Yes normocephalic and Yes atraumatic Ears: hearing grossly normal bilaterally Eyes General: appearance normal, both eyes and all related structures Neck Neck: Yes normal visual inspection and Yes trachea midline Chest Chest palpation & inspection: normal inspection of the chest Resp Effort & Inspection: normal respiratory effort and able to speak in complete sentences Cardio Rate: regular rate GI Inspection: Yes normal to inspection General: Yes no CVA tenderness Back/Spine/Pelvis Back: no CVA tenderness Skin General skin exam: no rashes or lesions noted Neuro General: patient oriented x3 Extrem General: Yes normal to inspection Psych Appearance: grossly normal and well kempt Mental Status: mental status grossly normal Speech and movement: Normal speech and movement present and Clear speech present Affect: normal affect Attitude: cooperative Thought process: Normal thought process present Thought content: Normal thought content present Insight: Fair insight present (Psych) Judgement: Fair judgement present (Psych) Office Procedures Post Void Residual Post Residual Void Post Void Residual (PVR): 0 [id number] Void Residual by ultrasound Results AMB Urinalysis, Automated UA Leukoctes 0 Rosa/uL Last Edit by Marcin Rangel on 04/25/24 13:25 UA Nitrite Last Edit by Marcin Rangel on 04/25/24 13:25 UA Urobilinogen 0.2 mg/dL Last Edit by Qosmosterrance Rangel on 04/25/24 13:25 UA Protein 0 mg/dL Last Edit by [email or web address] on 04/25/24 13:25 UA pH 6.0 Last Edit by [email or web address] on 04/25/24 13:25 UA Blood 80 Bryant/uL Last Edit by Qosmosterrance Rangel on 04/25/24 13:25 UA Specific [place] 1.025 Last Edit by [email or web address] on 04/25/24 13:25 UA Ketone Last Edit by Qosmosterrance Rangel on 04/25/24 13:25 UA Bilirubin 0 mg/dL Last Edit by [email or web address] on 04/25/24 13:25 UA Glucose 0 mg/dL Last Edit by [email or web address] on 04/25/24 13:25 Results Reviewed Results Reviewed: Laboratory Last Values Urine pH (Auto) 6.0 04/25/24 13:23 Specific [place] (Auto) 1.025 04/25/24 13:23 Urine Protein (Auto) 0 mg/dL 04/25/24 13:23 Glucose (UA)(Auto) 0 mg/dL 04/25/24 13:23 Urine Blood (Auto) 80 Bryant/uL 04/25/24 13:23 Urine Bilirubin (Auto) 0 mg/dL 04/25/24 13:23 Urine Urobilinogen (Auto) 0.2 mg/dL 04/25/24 13:23 Leukocyte Esterase (Auto) 0 Rosa/uL 04/25/24 13:23 Assessment & Plan Assessment & Plan (1) Microscopic hematuria: Code(s): R31.29 - Other microscopic hematuria Category: Medical Plan In office urinalysis results reviewed with the patient today; as noted above; will send for urine cytology. We discussed at length potential causes of microscopic hematuria as well as further workup; risks and benefits of these interventions were discussed. Will obtain retroperitoneal ultrasound for further assessment evaluation. Patient currently denies any bothersome urinary issues or concerns. She reports be happy with current voiding parameters. Discussed bladder triggers/irritants. Follow-up in 1-3 months with imaging to be completed prior; or sooner with any issues, concerns, and or questions. Orders: Orders Urine Cytology Today R31.29 - Other microscopic hematuria US retroperitoneal comp Today R31.29 - Other microscopic hematuria AMB Urinalysis Automated Today Z13.9 - Encounter for screening, unspecified AMB Post Void Residual by ultrasound Today R30.0 - Dysuria Patient Instructions: The patient had an opportunity to ask questions regarding the treatment plan. All questions were answered. Physical exam, labs, and imaging were discussed and reviewed in detail. As well as risks, benefits, and discussion of treatment choices. No major barriers to understanding were identified. The patient expressed understanding and agreement with the above treatment plan. The patient was made aware they should contact our office by phone for worsening of their current condition, the appearance of new symptoms, or with any questions or concerns. Compliance is encouraged with any medications and follow up testing that is ordered. It is a privilege to be allowed the opportunity to participate in? your urological care.? Again, if you have any questions or concerns If you have any questions or concerns please do not hesitate to contact me. The office is [phone]. This note is constructed using voice recognition software. While every effort has been made to ensure accuracy substation electrician errors may have been included. Yours sincerely, NOHEMI Zhang Coding Level of Care Code New Pt Level 3 (13467) Diagnoses Microscopic hematuria R31.29 CPT Codes Post Residual Void - PVR CPT Code: 06002-[id number] Void Residual by ultrasound ([id number])
== END 2024-04-25 13:36 | disposition home or self-care (01) ==
PROVIDERS: PCP Nurse Practitioner Family; Visit Provider Nurse Practitioner Family
DX: Z13.9 Encounter for screening, unspecified (principal); R31.29 Other microscopic hematuria
CPT/HCPCS: 99203

== ENCOUNTER 2024-04-25 12:58 | Outpatient (REF) | payer OTHER, SELFPAY ==
[2024-04-25 17:21] LABS: Urine Cytology See Pathology rpt
== END 2024-04-25 12:59 | disposition home or self-care (01) ==
LOC: HO.LNP 12:58
PROVIDERS: PCP Nurse Practitioner Family; Visit Provider Nurse Practitioner Family
DX: R31.29 Other microscopic hematuria (principal); R30.0 Dysuria; Z87.891 Personal history of nicotine dependence; Z87.440 Personal history of urinary (tract) infections
CPT/HCPCS: 51798; 81003; 88112; 99202

== ENCOUNTER 2024-06-21 16:29 | Outpatient (REF) | payer OTHER, SELFPAY | END 2024-06-21 16:30 | disposition home or self-care (01) | LOC: HO.US 16:29 | PROVIDERS: PCP Nurse Practitioner Family; Visit Provider Nurse Practitioner Family | DX: R31.29 Other microscopic hematuria (principal) | CPT/HCPCS: 76770 ==

== ENCOUNTER 2024-08-14 08:49 | Outpatient (REF) | payer OTHER, SELFPAY ==
[2024-08-14 11:07] LABS: Appearance Urine Clear; Color Urine Yellow; Glucose Urine UA Negative (Negative); Leukocyte Esterase Urine Negative (Negative); Nitrite Urine Negative (Negative); PH 5.5 (5.0-9.0); Specific Gravity - Urine 1.015 (1.005-1.025); UMIC TRIGGER UACC YES; Urine Blood Trace (Negative); Urine Ketones Negative (Negative); Urine Protein Negative (Neg-Trace)
[2024-08-14 11:14] LABS: Bacteria Urine None Seen (None Seen); Hyaline Casts Urine 0-2 /LPF (0-2); RBC Urine 0-2 /HPF (0-2); Squamous Epithelial Cell Urine 0-2 /HPF (0-2); WBC Urine 0-5 /HPF (0-5)
[2024-08-14 12:20] LABS: Alanine Aminotransferase 32 U/L (0-31); Albumin Level 4.1 g/dL (3.5-5.0); Alkaline Phosphatase 69 U/L (39-117); Anion Gap 9 (12-20); Aspartate Amino Transferase 22 U/L (5-31); Blood Urea Nitrogen 12 mg/dL (9-16); Calcium 10.6 mg/dL (8.4-10.2); Carbon Dioxide 28 mmol/L (22-29); Chloride 107 mmol/L (96-108); Cholesterol 183 mg/dL (<200); Estimated Glomerular Filt Rate > 60; Glucose Fasting 91 mg/dL (60-99); HDL Cholesterol 71 mg/dL (>40); LDL Cholesterol Calculated 87 mg/dL (<100); Sodium 140 mmol/L (135-145); Triglycerides 128 mg/dL (<150)
[2024-08-14 12:25] LABS: Vitamin D 25-OH Total 67.5 ng/mL (>30)
[2024-08-14 12:29] LABS: Bilirubin Total 0.6 mg/dL (0.0-1.0)
== END 2024-08-14 08:50 | disposition home or self-care (01) ==
LOC: HO.LAB 08:49
PROVIDERS: PCP Nurse Practitioner Family; Visit Provider Nurse Practitioner Family
DX: Z00.00 Encounter for general adult medical examination without abnormal findings (principal); Z78.0 Asymptomatic menopausal state
CPT/HCPCS: 36415; 80053; 80061; 81001; 81003; 82306

== ENCOUNTER 2024-08-23 16:05 | Outpatient (AMB) | payer OTHER, SELFPAY ==
--- NOTE | 2024-08-23 16:05 | MHC.OFFVIS ---
Intake Visit Reasons: follow up/US(set) Intake Note: Patient is Present for Telephone Follow Up For Ultrasound results Urology Med: None Antibiotic Allergy: None Blood Thinner: None Accident Report Clerk Required: No Accompanied by: Self / Same As Patient Allergies No Known Allergies Allergy (Verified 08/23/24 19:41) Medication List - Last Reconciled 08/23/24 by DEBORAH Zhang- conj estrog-medroxyprogest liset 0.625-2.5 mg (Prempro) 1 tab PO DAILY fluticasone propionate 50 mcg/actuation 1 spray intranasal DAILY PRN levonorgestrel (Mirena) intrauterine propranolol ER 60 mg PO BEDTIME HPI Comments Details: Kerri is a very pleasant 58-year-old female patient of Dr. Vela. She has a past medical history of basal cell carcinoma, malignant melanoma, sinusitis, arthritis, and GERD. She is being followed up on today via video telehealth. Of note, patient was seen approximately 4 months ago as a new patient for microscopic hematuria at which time a retroperitoneal ultrasound was ordered for further assessment evaluation in the patient's urine was sent out for cytology during last office visit. These results were reviewed with the patient today. Bilateral kidneys are normal in size, contour, and echogenicity. Bilateral kidneys with no hydronephrosis or lesions noted. 3 mm nonobstructing left renal calculus is noted. The bladder is well distended and normal. Bladder jets are demonstrated. Pre void bladder volume is approximately 300 mL. Postvoid bladder volume is approximately 10 mL. Urine cytology 05/02: Negative for high-grade urothelial carcinoma. We discussed intermittent microscopic hematuria versus persistent microscopic hematuria. She does have a previous history of nicotine dependence from the age of 17 to 20 years old however she reports this was more socially in did not smoke many cigarettes at that time. She otherwise denies any bothersome urinary issues or concerns. We reviewed previous UA results since 2020. We discussed potential causes of microscopic hematuria. When asked she denies urinary urgency, urinary frequency, incontinence, nocturia, hematuria, dysuria, foul smelling urine, changes to urinary stream, flank pain, fever, and or chills. She is happy with her current voiding parameters. She otherwise offers no other issues or concerns at this time. [facility] Medical History BCC (basal cell carcinoma of skin) Patellofemoral chondrosis of right knee Sinusitis History of postoperative nausea and vomiting Hx of malignant melanoma Arthritis Lab test negative for COVID-19 virus GERD (gastroesophageal reflux disease) History of palpitations Surgical History H/O colonoscopy Hx of arthroscopy of knee Hx of breast augmentation Hx of melanoma excision Family History Other Mental health disorder Social History Housing: House Patient Tobacco Use Status: Former Tobacco user (quit at age 20 ) Tobacco use type: Cigarette Years Smoked: 2 years e-Cigarette/Vaping Use: Never Used Second Hand Smoke Exposure: No Current occupational status: employed Cognitive needs: No Hearing needs: No Vision needs: No Review of Systems Const All systems reviewed & are unremarkable except as noted in HPI and below Physical Exam Const General: cooperative, healthy appearing, comfortable, no acute distress, well developed, alert and awake Orientation/consciousness: patient oriented x3 Resp Effort & Inspection: normal respiratory effort and able to speak in complete sentences Neuro General: patient oriented x3 Psych Appearance: grossly normal and well kempt Mental Status: mental status grossly normal Speech and movement: Clear speech present Affect: normal affect Attitude: cooperative Thought process: Normal thought process present Thought content: Normal thought content present Insight: Good insight present (Psych) Judgement: Good judgement present (Psych) Telehealth Telehealth Telehealth Platform: [facility] Location of provider rendering services: practice address Location of patient: address on file Patient Identification confirmed using: Name, : Yes Telehealth method: video Patient verbally consented to treatment: Yes Patient verbally consented to billing insurance company: Yes Patient informed of any privacy concerns related to visit: Yes Minutes spent on Phone/Video with Pt.: 15 Results Reviewed Results Reviewed: Date of Service: 06/21/24 EXAMINATION: US RETROPERITONEAL COMPLETE (RENAL) FINDINGS: RIGHT KIDNEY: 9.6 x 4.8 x 4.4 cm (SAG x AP x TRV). The kidney is normal in size, contour, and echogenicity. Renal cortical thickness is normal. No calculi or focal parenchymal lesions. No hydronephrosis. LEFT KIDNEY: 9.5 x 4.8 x 3.4 cm (SAG x AP x TRV). The kidney is normal in size, contour, and echogenicity. Renal cortical thickness is normal. No renal hydronephrosis. 3 mm echogenic focus seen with twinkle artifact in the mid kidney consistent with a nonobstructing calculus. BLADDER: Well distended and normal. Bilateral ureteral jets are demonstrated. Prevoid bladder volume is 303.5 mL. Postvoid bladder volume is 10.2 mL. IMPRESSION: 3 mm nonobstructing left renal calculus. Assessment & Plan Assessment & Plan (1) Microscopic hematuria: Code(s): R31.29 - Other microscopic hematuria Category: Medical (2) Nephrolithiasis: Code(s): N20.0 - Calculus of kidney Category: Medical Plan Recent retroperitoneal ultrasound results reviewed with the patient today; as noted above. Previous urine cytology results reviewed with the patient today; as noted above. We discussed at length persistent microscopic hematuria verses intermittent microscopic hematuria. We discussed potential causes of microscopic hematuria as well as further workup to include in office cystoscopy. Will continue with surveillance monitoring at this time. Discussed, educated, and stressed the importance of adequate hydration relation to nephrolithiasis as well as overall health and well-being. Discussed adding 1 oz of lemon juice to water daily. Patient currently denies any bothersome urinary issues or concerns. She reports be happy with current voiding parameters. Follow-up in 6 months; or sooner with any issues, concerns, and or questions. Patient Instructions: The patient had an opportunity to ask questions regarding the treatment plan. All questions were answered. Physical exam, labs, and imaging were discussed and reviewed in detail. As well as risks, benefits, and discussion of treatment choices. No major barriers to understanding were identified. The patient expressed understanding and agreement with the above treatment plan. The patient was made aware they should contact our office by phone for worsening of their current condition, the appearance of new symptoms, or with any questions or concerns. Compliance is encouraged with any medications and follow up testing that is ordered. It is a privilege to be allowed the opportunity to participate in? your urological care.? Again, if you have any questions or concerns If you have any questions or concerns please do not hesitate to contact me. The office is [phone]. This note is constructed using voice recognition software. While every effort has been made to ensure accuracy pill maker errors may have been included. Yours sincerely, DEBORAH Zhang-ADRIANA Coding Level of Care Code Tele Est Pt Level 3 (39596) Diagnoses Microscopic hematuria R31.29 Nephrolithiasis N20.0
== END 2024-08-23 16:35 | disposition home or self-care (01) ==
PROVIDERS: PCP Nurse Practitioner Family; Visit Provider Nurse Practitioner Family
DX: R31.29 Other microscopic hematuria (principal); N20.0 Calculus of kidney
CPT/HCPCS: 99213

== ENCOUNTER → 2024-08-23 16:05 | Outpatient (BNVA) | payer OTHER, SELFPAY | PROVIDERS: PCP Nurse Practitioner Family; Visit Provider Nurse Practitioner Family ==

== ENCOUNTER 2024-08-26 09:36 | Outpatient (REF) | payer OTHER, SELFPAY ==
[2024-08-26 12:02] LABS: Appearance Urine Clear; Color Urine Yellow; Glucose Urine UA Negative (Negative); Leukocyte Esterase Urine Negative (Negative); Nitrite Urine Negative (Negative); PH 6.5 (5.0-9.0); Urine Blood Negative (Negative); Urine Ketones Negative (Negative); Urine Protein Negative (Neg-Trace)
[2024-08-26 12:48] LABS: Parathyroid Hormone Intact 26.7 pg/mL (8.7-77.1)
[2024-08-29 11:13] LABS: Calcium, Ionized 5.4 mg/dL (4.7-5.5)
== END 2024-08-26 09:37 | disposition home or self-care (01) ==
LOC: HO.HMGCLDS 09:36
PROVIDERS: PCP Nurse Practitioner Family; Visit Provider Nurse Practitioner Family
DX: Z00.00 Encounter for general adult medical examination without abnormal findings (principal); E83.52 Hypercalcemia
CPT/HCPCS: 36415; 81003; 82330; 83970

== ENCOUNTER 2024-08-30 15:54 | Outpatient (AMB) | payer OTHER, SELFPAY ==
--- NOTE | 2024-08-30 15:59 | MHC.PC.OV ---
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: No Accompanied by: Self / Same As Patient Allergies No Known Allergies Allergy (Verified 08/30/24 17:19) Medication List - Last Reconciled 08/30/24 by DEBORAH Mendoza- estradiol 1 mg PO DAILY fluticasone propionate 50 mcg/actuation 1 spray intranasal DAILY PRN levonorgestrel (Mirena) intrauterine propranolol ER 60 mg PO BEDTIME trazodone 50 mg PO BEDTIME PRN 30 days Tobacco use date assessed: 08/30/24 Dental Screening Dental Screen Date: 08/30/24 Did you have a dental visit in the last 12 months?: Yes Did you have a dental problem in the last 6 months where you did not have access to dental care?: No Was dental information given to patient?: Patient has dentist HPI PE HPI Details History of Present Illness PE today. The patient is a 58-year-old female further presenting with a complaint of dizziness. She has a known history of benign paroxysmal positional vertigo, which was previously managed with physical therapy many years ago. She reports experiencing similar symptoms now. She denies associated symptoms such as nausea, vomiting, and chest pain. Lastly, anxiety reported waking herself out of a sound sleep approx half hour after going to bed. This is not daily, but frequent. ? going into REM sleep. Will try a low dose trazodone to see if this helps with her sleep habits. Health Maintenance - Regular dermatology consultations - Up-to-date mammogram - Current colon screening - Regular gynecological exams Social History Review of Systems - General: Denies fever, chills - Gastrointestinal: Denies nausea, vomiting, blood in stool, constipation, diarrhea - Urinary: Denies any urinary problems - Psychiatric: Denies suicidal ideation, homicidal ideation - Cardiovascular/Respiratory: Denies chest pain, shortness of breath Physical Exam General: Cooperative, healthy appearing, comfortable, no acute distress and well developed Orientation: Patient oriented x3 Limitations: No limitations Head: Normal to inspection Ears: Hearing grossly normal bilaterally Nose: Normal external nose present Face and sinus: Normal facial exam Eyes: Appearance normal, both eyes and all related structures Neck: Normal visual inspection and Yes full ROM Respiratory: Normal respiratory effort and able to speak in complete sentences. Clear to auscultation bilaterally Cardiovascular: Regular rate and rhythm. Normal S1 and S2 GI: Normal to inspection. Soft to palpation and nontender. Bowel sounds present x4 Skin: No rashes or lesions noted Neuro: Patient oriented x3. Jyt-Cxza-Wale maneuver negative. Negative Romberg Extremities: Normal to inspection Results Plan - Monitor symptoms of dizziness and manage accordingly - Educate the patient about vertigo and potential triggers - Recommend continuation of previously effective strategies for vertigo management Patient was informed and verbally consented to the use of an ambient scribe for clinic note documentation during this visit. Discussion Notes During today's visit, we discussed the patient's current symptoms of dizziness and their similarity to prior episodes of benign paroxysmal positional vertigo. I explained that the negative Andes-Hallpike maneuver is reassuring and indicates that aggressive intervention may not be necessary at this time, though do recommend a trial of PT/vestibular rehab. We discussed the importance of monitoring the symptoms and strategies for managing the episodes if they occur. We reviewed her current regular follow-up with dermatology, mammography, colon screening, and gynecologic evaluation, emphasizing the importance of these preventive measures. Patient Instructions - Continue with current management for dizziness if symptoms persist - Follow up with any significant changes or worsening of symptoms - Maintain regular healthcare screenings as scheduled [facility], [facility] Medical History BCC (basal cell carcinoma of skin) Patellofemoral chondrosis of right knee Sinusitis History of postoperative nausea and vomiting Hx of malignant melanoma Arthritis Lab test negative for COVID-19 virus GERD (gastroesophageal reflux disease) History of palpitations Surgical History H/O colonoscopy Hx of arthroscopy of knee Hx of breast augmentation Hx of melanoma excision Family History Other Mental health disorder Social History Housing: House Patient Tobacco Use Status: Former Tobacco user (quit at age 20 ) Tobacco use type: Cigarette Years Smoked: 2 years e-Cigarette/Vaping Use: Never Used Second Hand Smoke Exposure: No Current occupational status: employed Cognitive needs: No Hearing needs: No Vision needs: No Questionnaire PHQ-9 Over the last 2 weeks, how often have you been bothered by any of the following problems? 1. Little interest or pleasure in doing things: not at all 2. Feeling down, depressed, or hopeless: not at all 3. Trouble falling or staying asleep, or sleeping too much: not at all 4. Feeling tired or having little energy: not at all 5. Poor appetite or overeating: not at all 6. Feeling bad about yourself - or that you are a failure or have let yourself or your family down: not at all 7. Trouble concentrating on things, such as reading the newspaper or watching television: not at all 8. Moving or speaking so slowly that other people could have noticed. Or the opposite - being so fidgety or restless that you have been moving around a lot more than usual: not at all 9. Thoughts that you would be better off or of hurting yourself in some way: not at all Total score: 0 Depression Screening Interpretation: Negative Depression Screening Done: Yes 17155 - PHQ-9 Billing: Yes Source: Developed by Drs. Christofer Enrique, Alexa Hallman, Chaparro Muñoz and colleagues, with an educational lashae from [employer]. Thrive Questionnaire Date Thrive assessed: 08/30/24 I am a: Patient What is your living situation today?: I have a steady place to live Within the past 12 months, did the food you bought not last and you didn't have the money to get more?: Never true Within the past 12 months, did you worry whether your food would run out before you got money to buy more?: Never true Do you have trouble paying for medicines?: No Do you have trouble getting transportation to medical appointments?: No Do you have trouble paying your heating and electricity bill?: No Do you have trouble taking care of your child, family member or friend?: No Do you have trouble with day-to-day activities such as bathing, preparing meals, shopping, managing finances, etc.?: No Are you currently unemployed and looking for a job?: No Are you interested in more education?: No Please select the resources that you would like help with: None Currently or been in a relationship where the following occur: No concerns reported THRIVE Score: 0 AUDIT C Alcohol Use Questionnaire (AUDIT-C) 1. How often do you have a drink containing alcohol?: 2-3 times a week 2. How many drinks containing alcohol do you have on a typical day when you are drinking?: 1 or 2 3. How often do you have six or more drinks on one occasion?: Never Total Score: 3 Score Reviewed/Action Taken: Yes CAROLYN-7 AMB Questionnaire CAROLYN-7 Date CAROLYN - 7 assessed: 08/30/24 Feeling nervous, anxious, or on edge: 1 = Several days Not being able to stop or control worryin = Several days Worrying too much about different things: 1 = Several days Trouble relaxin = Not at all Being so restless that it is hard to sit still: 0 = Not at all Becoming easily annoyed or irritable: 1 = Several days Feeling afraid as if something awful might happen: 3 = Nearly every day Total CAROLYN-7 score (0-4 normal; 5-9 mild; 10-14 moderate; 15-21 severe): 7 Source: Developed by Drs. Christofer Enrique, Alexa Hallman, Chaparro Muñoz and colleagues, with an educational lashae from [employer]. CAROLYN-7 Assessment Billing CAROLYN-7 Assessment Tool: CAROLYN-7 Assessment 98383 Physical exam (Primary Care) Vital Signs: Last Vital Signs Temp 98.0 F 08/30/24 16:00 Pulse 72 08/30/24 16:00 BP 132/78 08/30/24 16:00 Pulse Ox 98 08/30/24 16:00 BMI result Body Mass Index 25.4 Tobacco/Smoking Status: Tobacco use Status Tobacco use date assessed 08/30/24 08/30/24 16:01 Patient Tobacco Use Status Former Tobacco user (quit at 08/30/24 16:01 age 20 ) Tobacco use type Cigarette 08/30/24 16:01 e-Cigarette/Vaping Use Never Used 08/30/24 16:01 PHQ-9: PHQ-9 Score PHQ-9: Total score 0 08/30/24 16:09 Depression Screening Interpretation: Negative Thrive Assessment: Date of Thrive Assessment Date Thrive assessed 08/30/24 08/30/24 16:01 Currently or been in a relationship where the following occur: No concerns reported Coding Level of Care Code Est Pt Prev Care 40-64y(79456) Diagnoses Physical exam Z00. Vertigo R42 Palpitations R00.2 Additional Codes CAROLYN-7 Assessment Billing - CAROLYN-7 Assessment Tool: CAROLYN-7 Assessment 76593 ([id number]) PHQ-9 - 11859 - PHQ-9 Billing: Yes ([id number]) Assessment & Plan Assessment & Plan (1) Physical exam: Code(s): Z00.00 - Encounter for general adult medical examination without abnormal findings Category: Medical (2) Vertigo: Code(s): R42 - Dizziness and giddiness Category: Medical (3) Palpitations: Comment: at night mostly, approx 1/2 hr after going to bed. trying a low dose trazodone. Code(s): R00.2 - Palpitations Category: Medical Plan . Orders: Orders Comprehensive [place]. Panel Fast Today Z00.00 - Encounter for general adult medical examination without abnormal findings UA CC w/rflx Micro + Cult Today Z00.00 - Encounter for general adult medical examination without abnormal findings Lipid Panel Today Z00.00 - Encounter for general adult medical examination without abnormal findings PT Evaluation and Treatment Today R42 - Dizziness and giddiness Complete Blood Count Auto Diff Today Z00.00 - Encounter for general adult medical examination without abnormal findings TSH reflex Free T4 Today Z00.00 - Encounter for general adult medical examination without abnormal findings Medications: New trazodone 50 mg PO BEDTIME 30 days PRN 30 tabs 0RF sleep
[2024-08-30 16:00] VITALS: BP 132/78; PULSE 72; TEMP 36.7; O2SAT 98; BMI 25.4
--- OUTSIDE RECORDS SUMMARY | 2024-08-30 18:04 | XMS_ITS | Clinical Summary ---
Author Organization [facility] Address [address] [place] [address] Care Team Providers Care Tester Vibrator Equipment Name Role Phone Min Funes MD Primary Care Provider [phone] Active Problems Problem Noted Date Diagnosed Date BPPV (benign paroxysmal positional vertigo) 08/10 Overview (09/12/2023): Impression - 03Sep2020: - Recent flare up of BPPV symptoms.; - Sumner Hallpike was negative bilaterally.; - Ameena maneuver handout provided to try at home if symptoms recur.; - Follow up as needed if vertigo does not improve. Hearing loss 09/03/2020 Overview (09/12/2023): Impression - 03Sep2020: - Audiogram; I will call her with the results of this.; - She will bring her old hearing test to appointment. Allergies 09/03/2020 Overview (09/12/2023): Impression - [id number]: - Referral sent to [facility]. Cerumen impaction 09/03/2020 Overview (09/12/2023): Impression - [id number]: - s/p successful right disimpaction. Social History Tobacco Use Types Packs/Day Years Used Date Smoking Tobacco: Never Assessed Comments Unknown Sex and Gender Information Value Date Recorded Sex Assigned at Not on file Legal Sex Female 10:58 PM EDT Gender Identity Not on file Sexual Orientation Not on file Last Filed Vital Signs Vital Sign Reading Time Taken Comments Blood Pressure 125/78 09/03/2020 2:17 PM EST Sit ting Sitting Pulse 75 09/03/2020 2:17 PM EST Temperature - - Respiratory Rate - - Oxygen Saturation - - Inhaled Oxygen Concentration - - Weight - - Height - - Body Mass Index - - Plan of Treatment Health Maintenance Due Date Last Done Comments Hepatitis C Screening 1966 Pap Smear 1982 DTaP/Tdap/Td (1 - Tdap) 1984 Hep B (1 of 3 - 19+ 3-dose series) 1985 Mammogram/Breast Imaging 2006 Colon Cancer Screening 2011 Pneumococcal 50+ years (1 of 1 - PCV) 2016 Zoster (Shingrix) (1 of 2) 2016 COVID-19 Vaccine (2023-2 5 season) 2024 Influenza (#1) 2024 HPV Vaccine Aged Out No longer eligi ble based on patient's age to complete this topic Hep A Aged Out No longer eligi ble based on patient's age to complete this topic Hib Aged Out No longer eligi ble based on patient's age to complete this topic Meningococcal ACWY Aged Out No longer eligible based on patient's age to complete this topic Care Teams Tester Vibrator Equipment Relationship Specialty Start Date End Date Min Funes MD [address] [place] [address] PCP - General 03/15/23
--- OUTSIDE RECORDS SUMMARY | 2024-08-30 18:04 | XMS_ITS | Clinical Summary ---
Author Organization [facility] Address [address] [place] [address] Care Team Providers Care Agency Legal Counsel Name Role Phone Unavailable Primary Care Provider Unavailabl e Social History Tobacco Use Types Packs/Day Years Used Date Smoking Tobacco: Never Assessed Sex and Gender Information Value Date Recorded Sex Assigned at Not on file Gender Identity Not on file Sexual Orientation Not on file Job Start Date Occupation Industry Not on file Not on file Not on file Plan of Treatment Health Maintenance Due Date Last Done Comments Hepatitis B Vaccines (1 of 3 - 3-dose series) 1966 Hepatitis C Screening 1966 COVID-19 Vaccine (#1) 02/28/1967 Depression Screening 1978 Preventative Health Evaluation 1984 DTap / Tdap / Td (1 - Tdap) 1985 Cervical Cancer Screening (P ap Smear) 1987 Colon Cancer Screening (Colonoscopy) 2011 Breast Cancer Screening (Mammogram) 2016 Shingrix-Zoster Vaccine (1 of 2) 2016 Influenza Vaccine (#1) 2024 Pneumococcal Vaccine Aged Out No long er eligible based on patient's age to complete this topic RSV Ped < 20 months Aged Out No longe r eligible based on patient's age to complete this topic
== END 2024-08-30 17:12 | disposition home or self-care (01) ==
PROVIDERS: PCP Nurse Practitioner Family; Visit Provider Nurse Practitioner Family
DX: Z00.00 Encounter for general adult medical examination without abnormal findings (principal); R42 Dizziness and giddiness; R00.2 Palpitations

== ENCOUNTER → 2024-08-30 15:54 | Outpatient (BNVA) | payer OTHER, SELFPAY | PROVIDERS: PCP Nurse Practitioner Family; Visit Provider Nurse Practitioner Family | DX: Z00.00 Encounter for general adult medical examination without abnormal findings (principal); R42 Dizziness and giddiness; R00.2 Palpitations | CPT/HCPCS: 96127 ==

== ENCOUNTER 2024-11-29 07:27 | Outpatient (AMB) | payer OTHER, SELFPAY ==
--- NOTE | 2024-11-29 07:29 | MHC.OFFVIS ---
Vital Signs 11/29/24 07:41 Height 5 ft Weight 130 lb BMI 25.4 BP 137/75 Blood Pressure Location Lt brachial Position Sitting Pulse 98 Pulse Oximetry (%) 98 Oxygen Delivery Method Room Air Intake Visit Reasons: ken pt colo screening Intake Note: Patient complex follow up for Constipation, marie was 02/17/2022 with Ruba and last Colonoscopy was 06/27/[address] Rios with 10 yrs recall. Patient cc: abdominal bloating, gassy with constipation, GERD with chocking sensation at night time with nauseas on and off, always tired and LLQ pain. Local Combination Truck Driver Required: No Accompanied by: Self / Same As Patient Allergies No Known Allergies Allergy (Verified 11/29/24 07:28) Medication List - Last Reconciled 11/29/24 by Christine Henderson CNP estradiol 1 mg PO DAILY famotidine 20 mg PO DAILY PRN fluticasone propionate 50 mcg/actuation 1 spray intranasal DAILY PRN levonorgestrel (Mirena) intrauterine propranolol ER 60 mg PO BEDTIME trazodone 50 mg PO BEDTIME PRN 30 days HPI HPI jm pt colo screening: Details: Patient is a 59-year-old female with PMH of basal cell carcinoma, malignant melanoma, sinusitis, arthritis, and GERD. Last visit with KELLEE Osman 02/17/2022 for constipation Pt is here today for follow up. She reports ab bloating and flatulence onset approx 2 years ago. She reports BM most days of the week, type 2-3. Reports hemorrhoids are well managed without medication. Associated symptoms: intermittent nausea at noc Aggravating factors: unable to identify Alleviating attempts: changing eating patterns Patient denies: fever/chills, vomiting, appetite changes, unintentional wt loss or melena/hematochezia. She reports pyrosis 1-2x/week with rare occasion of regurgitation. She reports taking pepcid at least once/week. States she will take omeprazole if symptoms occur 2+ nights in a row and will continue for two weeks, followed by returning to Pepcid as needed. associating symptoms: intermittent clearing of throat, suck sensation to throat She denies dysphasia Common foods consumed: first meal at 11am progresso soup, canned tuna, chicken tenders chicken stir mccall, steak with vegetables, tacos, rice minimizes fried foods Endorses inadequate water intake, mostly drinks green tea and occasional seltzer She reports intermittent left pelvic pain X 6 month. Shares U/S was obtained 06/2024 with findings of left kidney stone. States she is to follow up with Urology this fall. Social hx: 2 drinks (wine or mixed drink)/week denies recreational drug use 2 year former smoker history from age [age] denies family hx personal hx of CA -malignant melanoma (2000) PFSH Medical History (Updated 11/29/24 @ 09:03 by Christine Henderson CNP) Pelvic pain in female Pelvic pain BCC (basal cell carcinoma of skin) Patellofemoral chondrosis of right knee Sinusitis History of postoperative nausea and vomiting Hx of malignant melanoma Arthritis Lab test negative for COVID-19 virus GERD (gastroesophageal reflux disease) History of palpitations Surgical History H/O colonoscopy Hx of arthroscopy of knee Hx of breast augmentation Hx of melanoma excision Family History Other Mental health disorder Social History Housing: House Patient Tobacco Use Status: Former Tobacco user Tobacco use type: Cigarette Years Smoked: 2 years e-Cigarette/Vaping Use: Never Used Second Hand Smoke Exposure: No Current occupational status: employed Cognitive needs: No Hearing needs: No Vision needs: No Review of Systems Const Reports as per HPI ENT Reports as per HPI Card Reports as per HPI Resp Reports as per HPI GI Reports as per HPI Reports as per HPI Physical Exam Vital Signs: Last Vital Signs Pulse 98 11/29/24 07:41 BP 137/75 11/29/24 07:41 Pulse Ox 98 11/29/24 07:41 Oxygen Delivery Method Room Air 11/29/24 07:41 BMI result Body Mass Index 25.4 Const General: healthy appearing, no acute distress and well developed Nutritional Appearance: well nourished Orientation/consciousness: patient oriented x3 HEENT Head: Yes normal to inspection, Yes normocephalic and Yes atraumatic Face and sinus: Yes normal facial exam Mouth: oropharynx normal and Abnormal oral and palatal mucosa present Throat: Yes posterior oropharynx normal, Yes tonsils normal and No postnasal drainage Eyes General: appearance normal, both eyes and all related structures Neck Neck: Yes normal visual inspection Resp Effort & Inspection: normal respiratory effort, able to speak in complete sentences, no tracheal deviation and symmetric chest movement Auscultation: clear to auscultation bilaterally Cardio Jugular venous distension: no JVD Rate: regular rate Rhythm: regular rhythm Heart sounds: S1 normal heart sound present, S2 normal heart sound present, no gallops and no murmurs GI Inspection: Yes normal to inspection and No distended Palpation (GI): Soft to palpation, not firm, nontender and No hepatosplenomegaly present Auscultation: normal bowel sounds Neuro General: patient oriented x3 Gait exam (Neuro): Normal gait present Psych Appearance: grossly normal Mental Status: mental status grossly normal Speech and movement: Normal speech and movement present Affect: normal affect Attitude: cooperative Thought process: Normal thought process present Thought content: Normal thought content present Insight: Good insight present (Psych) Judgement: Good judgement present (Psych) Results Reviewed Results Reviewed: Date of Service: 06/21/24 Procedure(s): US retroperitoneal comp Accession Number(s): [id number] cc: Jeff Will [facility]; Kecia Monge [facility]~ EXAMINATION: US RETROPERITONEAL COMPLETE (RENAL) CLINICAL INFORMATION: Other microscopic hematuria. COMPARISON: None available. TECHNIQUE: Real-time imaging of the kidneys and bladder. FINDINGS: RIGHT KIDNEY: 9.6 x 4.8 x 4.4 cm (SAG x AP x TRV). The kidney is normal in size, contour, and echogenicity. Renal cortical thickness is normal. No calculi or focal parenchymal lesions. No hydronephrosis. LEFT KIDNEY: 9.5 x 4.8 x 3.4 cm (SAG x AP x TRV). The kidney is normal in size, contour, and echogenicity. Renal cortical thickness is normal. No renal hydronephrosis. 3 mm echogenic focus seen with twinkle artifact in the mid kidney consistent with a nonobstructing calculus. BLADDER: Well distended and normal. Bilateral ureteral jets are demonstrated. Prevoid bladder volume is 303.5 mL. Postvoid bladder volume is 10.2 mL. US/US retroperitoneal comp IMPRESSION: 3 mm nonobstructing left renal calculus. Electronically signed by: Eduardo Alatorre MD 08/18/2024 04:14 PM [facility] Date of Service: 06/27/20 Narrative: COLONOSCOPY Procedure: The patient was placed in the left lateral decubitis position and pre-procedure medications were administered. After a digital rectal examination of the ano-rectum, the video colonoscope was inserted into the rectum and advanced through the colon to the cecum/TI. The colonoscope was slowly withdrawn in a retrograde panoramic fashion and the colon mucosa was carefully examined including a retroflexed view of the rectum. Findings and interventions are described below. Procedure Difficulty:easy Findings: Terminal Ileum-normal Cecum:normal Ascending Colon: normal Transverse Colon -normal Descending Colon:normal Sigmoid Colon: normal Rectum: Retroflexion with small internal hemorrhoids, grade I Anorectum - normal Colon preparation: [place] Bowel Preparation Scale Right colon; 3 Transverse colon: 3 Left colon; 3 (0 = Unprepared colon segment with mucosa not seen due to solid stool that cannot be cleared. 1 = Portion of mucosa of the colon segment seen, but other areas of the colon segment not well seen due to staining, residual stool and/or opaque liquid. 2 = Minor amount of residual staining, small fragments of stool and/or opaque liquid, but mucosa of colon segment seen well. 3 = Entire mucosa of colon segment seen well with no residual staining, small fragments of stool or opaque liquid) Impression and Post Procedure Diagnosis: internal hemorrhoids Plan: High fiber diet leaflet Avoid straining at stool, epsom salts and sitz bath prn, anusol supps or cream prn Repeat Colonoscopy in 10 years or earlier if clinically indicated Assessment & Plan Assessment & Plan (1) Bloating: Code(s): R14.0 - Abdominal distension (gaseous) Category: Medical Plan: Normal colonoscopy June 2020 with recommendations for repeat in 10 years. Also reassured with normal bowel movements. Suspect symptoms are dietary induced. We advised following low-FODMAP, handout provided. However, we will obtain labs to rule out inflammatory or celiac as source. She is agreeable and we will complete labs today. (2) GERD (gastroesophageal reflux disease): Code(s): K21.9 - Gastro-esophageal reflux disease without esophagitis Category: Medical Qualifiers: Esophagitis presence: esophagitis presence not specified Qualified Code(s): K21.9 - Gastro-esophageal reflux disease without esophagitis Plan: Increase in symptoms and intermittent globus sensation. Shared decision making to obtain barium swallow. Continue famotidine as needed, she denied need for refills. Education on GERD prevention-Advised against heavy meals. Encouraged small frequent meals VS large meals, remaining upright after meals x 2-3 hours, avoid late night eating/spicy foods/caffeine/alcohol/known triggers and tight fitting clothes (3) Pelvic pain: Code(s): R10.2 - Pelvic and perineal pain Category: Medical Plan: Exam unyielding. She has suffered from constipation in the past. However, improved with lifestyle modifications. Again reassured with colonoscopy. Plan for labs as above. We discussed potential renal calculus VS gynecological as source of symptoms. Strongly encouraged to follow-up with her receiving teller to explore need for transvaginal ultrasound. Advised adequate hydration with water. Keep follow-up appointment with Urology. Plan Follow-up in 8 weeks or sooner as needed Time: I spent a total of 60 minutes on the date of encounter which includes: Preparing to see the patient (reviewed previous documentation, test results and medical history) Performing a medically appropriate exam and/or evaluation Ordering medications, tests, and procedures Documenting clinical information in the health record Orders: Orders Calprotectin, Fecal Today R14.0 - Abdominal distension (gaseous) FL barium swallow Today R14.0 - Abdominal distension (gaseous) C Reactive Protein Today R14.0 - Abdominal distension (gaseous) Transglutaminase IgA Today R14.0 - Abdominal distension (gaseous) Coding Level of Care Code New Pt Est Pt Level 4 (29386) Patient Type New Diagnoses Bloating R14.0 Gastroesophageal reflux disease, unspecified whether esophagitis present K21.9 Esophagitis presence: esophagitis presence not specified Pelvic pain R10.2
[2024-11-29 07:41] VITALS: BP 137/75; PULSE 98; O2SAT 98; BMI 25.4
== END 2024-11-29 08:24 | disposition home or self-care (01) ==
LOC: HO.HGI 07:27
PROVIDERS: PCP Nurse Practitioner Family; Visit Provider Nurse Practitioner Family
DX: R14.0 Abdominal distension (gaseous) (principal); K21.9 Gastro-esophageal reflux disease without esophagitis; R10.2 Pelvic and perineal pain
CPT/HCPCS: 99205

== ENCOUNTER 2025-02-15 09:24 | Outpatient (REF) | payer OTHER, SELFPAY ==
[2025-02-15 09:45] LABS: MANUAL DIFF FLAG NO
--- OUTSIDE RECORDS SUMMARY | 2025-02-15 09:51 | XMS_ITS | Clinical Summary ---
Author Organization [facility] Address [address] [place] [address] Care Team Providers Care State Game Protector Name Role Phone Min Funes MD Primary Care Provider [phone] Active Problems Problem Noted Date Diagnosed Date BPPV (benign paroxysmal positional vertigo) 08/10 Overview (09/12/2023): Impression - 03Sep2020: - Recent flare up of BPPV symptoms.; - Mary Ann Hallpike was negative bilaterally.; - Ameena maneuver handout provided to try at home if symptoms recur.; - Follow up as needed if vertigo does not improve. Hearing loss 09/03/2020 Overview (09/12/2023): Impression - 03Sep2020: - Audiogram; I will call her with the results of this.; - She will bring her old hearing test to appointment. Allergies 09/03/2020 Overview (09/12/2023): Impression - [id number]: - Referral sent to [facility]. Cerumen impaction 09/03/2020 Overview (09/12/2023): Impression - [id number]: - s/p successful right disimpaction. Social History [...] (Shingrix) (1 of 2) 2016 COVID-19 Vaccine ( - 2023-2 5 season) 2024 Influenza (#1) 2025 HPV Vaccine Aged Out No longer eligi [...] age to complete this topic Care Teams State Game Protector Relationship Specialty Start Date End Date Min Funes MD [address] [place] [address] PCP - General 03/15/23
--- OUTSIDE RECORDS SUMMARY | 2025-02-15 09:51 | XMS_ITS | Patient Health Record ---
Author Organization [facility] Address [address] [place] [id number] Care Team Providers Care Fuel Efficient Automobile Designer Name Role Phone Patel Christofer Unavailable [phone] Reason For Referral No Information Plan Of Treatment No Information
--- OUTSIDE RECORDS SUMMARY | 2025-02-15 09:51 | XMS_ITS | Clinical Summary ---
Author Organization [facility] Address [address] [place] [address] Care Team Providers Care Hobbing Machine Operator Name Role Phone Unavailable Primary Care Provider [...] (1 of 2) 2016 Influenza Vaccine (#1) 2025 Pneumococcal Vaccine Aged Out No long er eligible based on patient's age to complete this topic RSV Ped < 20 months Aged Out No longe r eligible based on patient's age to complete this topic
--- OUTSIDE RECORDS SUMMARY | 2025-02-15 09:51 | XMS_ITS | Patient Health Record ---
Author Organization [facility] Address [address] [place] [address] Care Team Providers Care Flanging Operator Name Role Phone Nick Benites MD Primary Care Provider Yarely Dimple Kimball Unavailable [phone] Reason For Referral No Information Medications Medication SIG (Take, Route, Frequency, Duration) Notes Start Date End Date Status Meloxicam Active Turmeric Active Probiotic - Orally Active Social History Tobacco Use: Social History Observation Description Date Details (start date - stop date) Former Smoker NA - NA Tobacco Use/Smoking Question Answer Notes Are you a: former smoker When did you stop smoking? 30 yrs ago Additional Findings: Tobacco Non-User Current no n-smoker Alcohol Screen Question Answer Notes Did you have a drink containing alcohol in the p ast year? Yes Points 0 Interpretation Negative Tobacco use other than smoking: Question Answer Notes Are you an other tobacco user? No Problems Problem Type SNOMED Code ICD Code Onset Dates Problem Status W/U Status Risk Notes Problem Primary osteoarthritis , right ankle and foot (M19.071) Active confirmed Plan Of Treatment No Information Insurance Providers Payer Name Payer Address Payer Phone Subscriber Number Group Number Insured Name Patient Relationship to Insured Coverage Start Date Coverage End Date [facility] [address] [place] [address] [id number] Kerri Joseph Self - patient is the insured Medical (General) History Medical History History ICD Code Arthritis Back,Hip,and Knee pain Broken bones melanoma Headaches/Migraines Sciatica chronic sinusitis Chicken pox Surgical History Surgery Date(Month/Year) breast implants 2009 lymph node resection 2000 Knee arthroscopic 1993,1995,2011
[2025-02-15 09:54] LABS: Hematocrit 39.4 % (37.0-47.0); Hemoglobin 13.0 g/dl (12.0-16.0); Imm Gran Abs Auto 0.02 X10*3/uL (0.00-0.03); Imm Gran Pct Auto 0.3 % (0.0-0.4); Lymphocytes Absolute Auto 1.5 X10*3/uL (1.2-4.9); Mean Corpuscular HGB Conc 33.0 g/dl (31.0-35.0); Mean Corpuscular Hemoglobin 29.0 pg (27.0-33.0); Mean Corpuscular Volume 87.9 fL (80.0-98.0); NRBC Abs Auto 0.000 X10*3/uL (0.0-0.012); NRBC Pct Auto 0.0 /100WBC (0.0-0.2); Platelet Count 303 X10*3/uL (160-400); Red Blood Count 4.48 X10*6/uL (4.20-5.50); White Blood Count 6.7 X10*3/uL (4.8-10.8)
[2025-02-15 10:57] LABS: Appearance Urine Clear; Glucose Urine UA Negative (Negative); PH 6.0 (5.0-9.0); Specific Gravity - Urine 1.015 (1.005-1.025); UMIC TRIGGER UACC YES
[2025-02-15 11:07] LABS: Alanine Aminotransferase 50 U/L (0-31); Albumin Level 4.2 g/dL (3.5-5.0); Alkaline Phosphatase 65 U/L (39-117); Anion Gap 11 (12-20); Aspartate Amino Transferase 36 U/L (5-31); Blood Urea Nitrogen 13 mg/dL (9-16); Calcium 9.8 mg/dL (8.4-10.2); Carbon Dioxide 27 mmol/L (22-29); Chloride 106 mmol/L (96-108); Cholesterol 192 mg/dL (<200); Estimated Glomerular Filt Rate > 60; HDL Cholesterol 67 mg/dL (>40); Potassium 4.5 mmol/L (3.3-5.1); Sodium 139 mmol/L (135-145); Total Protein 6.8 g/dL (6.5-8.0); Triglycerides 84 mg/dL (<150)
== END 2025-02-15 09:25 | disposition home or self-care (01) ==
LOC: HO.LAB 09:24
PROVIDERS: Absent Provider Nurse Practitioner Family; PCP Nurse Practitioner Family; Visit Provider Nurse Practitioner Family
DX: Z00.00 Encounter for general adult medical examination without abnormal findings (principal); R14.0 Abdominal distension (gaseous)
CPT/HCPCS: 36415; 80053; 80061; 81001; 84443; 85025; 86140; 86364

== ENCOUNTER 2025-02-19 15:19 | Outpatient (AMB) | payer OTHER, SELFPAY ==
--- NOTE | 2025-02-19 15:20 | A.OFFVIS_ITS ---
Intake Visit Reasons: 6m follow up Intake Note: Patient is Present for 6 mo Follow Up For micro hematuria Urology Med: estrace Antibiotic Allergy: None Blood Thinner: None Medical Physics Researcher Required: No Accompanied by: Self / Same As Patient Allergies No Known Allergies Allergy (Verified 02/19/25 16:18) Medication List - Last Reconciled 02/19/25 by DEBORAH Zhang-ADRIANA estradiol 1 mg PO DAILY famotidine 20 mg PO DAILY PRN fluticasone propionate 50 mcg/actuation 1 spray intranasal DAILY PRN propranolol ER 60 mg PO BEDTIME HPI Comments Details: Kerri is a very pleasant 59-year-old female patient of Dr. Vela. She has a past medical history of basal cell carcinoma, malignant melanoma, sinusitis, arthritis, and GERD. She presents to the office today for follow-up of her microscopic hematuria. In discussion with the patient today she reports initially she was going to reschedule her appointment as she has had no bothersome urinary issues or concerns however had recent follow-up with PCP for other issues and patient was noted to have microscopic hematuria and recommendations were made to continue to follow-up with Urology. She reports recently following up with her concrete floater at [facility] and has had her Mirena removed and believes her microscopic hematuria could be related to this. We did discussed potential causes of microscopic hematuria as well as further workup in risks and benefits of these interventions. Previous urine cytology 05/02 Negative for high-grade urothelial carcinoma as well as retroperitoneal ultrasound 07/02 noting bilateral kidneys are normal in size, contour, and echogenicity. Bilateral kidneys with no hydronephrosis or lesions noted. 3 mm nonobstructing left renal calculus is noted. The bladder is well distended and normal. Bladder jets are demonstrated. Pre void bladder volume is approximately 300 mL. Postvoid bladder volume is approximately 10 mL. We discussed intermittent microscopic hematuria versus persistent microscopic hematuria. She does have a previous history of nicotine dependence from the age of 17 to 20 years old however she reports this was more socially and did not smoke many cigarettes at that time. She otherwise denies any bothersome urinary issues or concerns. We reviewed previous UA results since 2020. We discussed potential causes of microscopic hematuria. When asked she denies urinary urgency, urinary frequency, incontinence, nocturia, hematuria, dysuria, foul smelling urine, changes to urinary stream, flank pain, fever, and or chills. She is happy with her current voiding parameters. She discusses her upcoming abdominal ultrasound for abnormal labs. She otherwise offers no other issues or concerns at this time. [facility] Medical History Pelvic pain in female Pelvic pain BCC (basal cell carcinoma of skin) Patellofemoral chondrosis of right knee Sinusitis History of postoperative nausea and vomiting Hx of malignant melanoma Arthritis Lab test negative for COVID-19 virus GERD (gastroesophageal reflux disease) History of palpitations Surgical History H/O colonoscopy Hx of arthroscopy of knee Hx of breast augmentation Hx of melanoma excision Family History Other Mental health disorder Social History Housing: House Patient Tobacco Use Status: Former Tobacco user Tobacco use type: Cigarette Years Smoked: 2 years e-Cigarette/Vaping Use: Never Used Second Hand Smoke Exposure: No Current occupational status: employed Cognitive needs: No Hearing needs: No Vision needs: No Review of Systems Const All systems reviewed & are unremarkable except as noted in HPI and below Physical Exam Const General: cooperative, healthy appearing, comfortable, no acute distress, well developed, alert and awake Orientation/consciousness: patient oriented x3 Limitations: no limitations HEENT Head: Yes normal to inspection, Yes normocephalic and Yes atraumatic Ears: hearing grossly normal bilaterally Eyes General: appearance normal, both eyes and all related structures Neck Neck: Yes normal visual inspection and Yes trachea midline Chest Chest palpation & inspection: normal inspection of the chest Resp Effort & Inspection: normal respiratory effort and able to speak in complete sentences Cardio Rate: regular rate GI Inspection: Yes normal to inspection General: Yes no CVA tenderness Back/Spine/Pelvis Back: no CVA tenderness Skin General skin exam: no rashes or lesions noted Neuro General: patient oriented x3 Extrem General: Yes normal to inspection Psych Appearance: grossly normal and well kempt Mental Status: mental status grossly normal Speech and movement: Clear speech present Affect: normal affect Attitude: cooperative Thought process: Normal thought process present Thought content: Normal thought content present Insight: Fair insight present (Psych) Judgement: Fair judgement present (Psych) Results AMB Urinalysis, Automated UA Leukoctes 0 Rosa/uL Last Edit by Mahogany [place], [place] on 02/19/25 16:12 UA Nitrite Negative Last Edit by Mahogany [place], [place] on 02/19/25 16:12 UA Urobilinogen 0.2 mg/dL Last Edit by [place]ogany [place], [place] on 02/19/25 16:12 UA Protein 0 mg/dL Last Edit by Mahogany [place], [place] on 02/19/25 16:12 UA pH 6.0 Last Edit by [place], [place] on 02/19/25 16:12 UA Blood 25 Bryant/uL Last Edit by [place], [place] on 02/19/25 16:12 UA Specific [place] 1.010 Last Edit by Mahogany [place], [place] on 02/19/25 16:12 UA Ketone Negative Last Edit by Mahogany [place], [place] on 02/19/25 16:12 UA Bilirubin 0 mg/dL Last Edit by Mahogany [place], [place] on 02/19/25 16:12 UA Glucose 0 mg/dL Last Edit by [place], [place] on 02/19/25 16:12 Results Reviewed Results Reviewed: Laboratory Last Values Urine pH (Auto) 6.0 02/19/25 15:39 Specific [place] (Auto) 1.010 02/19/25 15:39 Urine Protein (Auto) 0 mg/dL 02/19/25 15:39 Glucose (UA)(Auto) 0 mg/dL 02/19/25 15:39 Urine Ketones (Auto) Negative 02/19/25 15:39 Urine Blood (Auto) 25 Bryant/uL 02/19/25 15:39 Urine Nitrite (Auto) Negative 02/19/25 15:39 Urine Bilirubin (Auto) 0 mg/dL 02/19/25 15:39 Urine Urobilinogen (Auto) 0.2 mg/dL 02/19/25 15:39 Leukocyte Esterase (Auto) 0 Rosa/uL 02/19/25 15:39 Assessment & Plan Assessment & Plan (1) Microscopic hematuria: Code(s): R31.29 - Other microscopic hematuria Category: Medical (2) Nephrolithiasis: Code(s): N20.0 - Calculus of kidney Category: Medical Plan In office urinalysis results reviewed with the patient today; as noted above; will send for urine cytology. We did discussed potential causes of microscopic hematuria as well as intermittent microscopic hematuria versus persistent microscopic hematuria; further interventions were discussed; as well as risks and benefits of these interventions. Will obtain renal ultrasound for further assessment evaluation. She currently denies any bothersome urinary issues. She reports be happy with current voiding parameters. Previous urine cytology and urinalysis were reviewed. All questions were answered. Follow-up in 3 months with imaging to be completed prior; or sooner with any issues, concerns, and or questions. Orders: Orders Urine Cytology Today R31.29 - Other microscopic hematuria AMB Urinalysis Automated Today Z13.9 - Encounter for screening, unspecified US renal BI Today N20.0 - Calculus of kidney Patient Instructions: The patient had an opportunity to ask questions regarding the treatment plan. All questions were answered. Physical exam, labs, and imaging were discussed and reviewed in detail. As well as risks, benefits, and discussion of treatment choices. No major barriers to understanding were identified. The patient expressed understanding and agreement with the above treatment plan. The patient was made aware they should contact our office by phone for worsening of their current condition, the appearance of new symptoms, or with any questions or concerns. Compliance is encouraged with any medications and follow up testing that is ordered. It is a privilege to be allowed the opportunity to participate in? your urological care.? Again, if you have any questions or concerns If you have any questions or concerns please do not hesitate to contact me. The office is [phone]. This note is constructed using voice recognition software. While every effort has been made to ensure accuracy steel barrel reamer errors may have been included. Yours sincerely, NOHEMI Zhang Coding Level of Care Code Est Pt Level 3 (65816) Complex EM visit Add On G2211 Diagnoses Microscopic hematuria R31.29 Nephrolithiasis N20.0
--- OUTSIDE RECORDS SUMMARY | 2025-02-19 16:33 | XMS_ITS | Patient Health Record ---
Author Organization [facility] Address [address] [place] [address] Care Team Providers Care Finish Repair Worker Name Role Phone Nick Benites MD Primary Care Provider Yarely Dimple Kimball Unavailable [phone] Reason For Referral No Information Medications Medication [...] Problem Status W/U Status Risk Notes Problem Localized, primary osteoarthritis of the ankle and/or foot (288266167) Primary osteoarthrit is, right ankle and foot (M19.071) Active confirmed Plan Of Treatment No Information Insurance Providers Payer Name Payer Address Payer Phone Subscriber Number Group Number Insured Name Patient Relationship to Insured Coverage Start Date Coverage End Date [facility] [address] [place] [address] [id number] Kerri Joseph Self - patient is the insured Medical (General) History Medical History History ICD Code Arthritis Back,Hip,and Knee pain Broken bones melanoma Headaches/Migraines Sciatica chronic sinusitis Chicken pox Surgical History Surgery Date(Month/Year) breast implants 2008 lymph node resection 2000 Knee arthroscopic 1993,1995,2011
--- OUTSIDE RECORDS SUMMARY | 2025-02-19 16:33 | XMS_ITS | Patient Health Record ---
Author Organization [facility] Address [address] [place] [address] Care Team Providers Care Streetcar Conductor Name Role Phone Patel Christofer Unavailable [phone] Reason For Referral No Information Plan Of Treatment No Information
--- OUTSIDE RECORDS SUMMARY | 2025-02-19 16:33 | XMS_ITS | Clinical Summary ---
Author Organization [facility] Address [address] [place] [address] Care Team Providers Care Director [facility]clerosis [facility] Name Role Phone Min Funes MD Primary Care Provider [phone] Active Problems Problem Noted Date Diagnosed Date [...] appointment. Allergies 09/03/2020 Overview (09/12/2023): Impression - [id number]: - Referral sent to [facility]. Cerumen impaction 09/03/2020 Overview (09/12/2023): Impression - [id number]: - s/p successful right disimpaction. Social History [...] age to complete this topic Care Teams Director [facility] Sclerosis [facility] Relationship Specialty Start Date End Date Min Funes MD [address] [place] [address] PCP - General 03/15/23
--- OUTSIDE RECORDS SUMMARY | 2025-02-19 16:33 | XMS_ITS | Clinical Summary ---
Author Organization [facility] Address [address] [place] [address] Care Team Providers Care Cnc Manufacturing Engineer Name Role Phone Unavailable Primary Care Provider [...]
== END 2025-02-19 15:52 | disposition home or self-care (01) ==
LOC: HO.HUSH 15:20
PROVIDERS: PCP Nurse Practitioner Family; Visit Provider Nurse Practitioner Family
DX: R31.29 Other microscopic hematuria (principal); N20.0 Calculus of kidney; Z13.9 Encounter for screening, unspecified
CPT/HCPCS: 99213

== ENCOUNTER 2025-02-19 15:37 | Outpatient (REF) | payer OTHER, SELFPAY ==
[2025-02-19 17:40] LABS: Appearance Urine Clear; Glucose Urine UA Negative (Negative); PH 5.5 (5.0-9.0); Specific Gravity - Urine 1.020 (1.005-1.025); UMIC TRIGGER UACC YES
[2025-02-20 08:30] LABS: HBS Num1 0.04 mIU/mL (0-7.99); HBc Num1 0.04 S/CO (0.00-0.79); HBsAGNum1 0.41 S/CO (0.00-0.99); Hepatitis A Antibody IgM 0.20 Index (0-0.79); Hepatitis B Surface Antigen Negative (Negative); ~HepC Num1 0.14 S/CO (0.00-0.79); ~Hepatitis A Antibody IgM Nonreactive (Nonreactive); ~Hepatitis B Surface Antibody NONREACTIVE (Nonreactive); ~Hepatitis C Antibody Nonreactive (Nonreactive)
[2025-02-24 22:03] LABS: Calprotectin, Fecal 14 mcg/g
== END 2025-02-19 15:38 | disposition home or self-care (01) ==
LOC: HO.LAB 15:37
PROVIDERS: Nurse Practitioner Family; Absent Provider Nurse Practitioner Family; PCP Nurse Practitioner Family; Visit Provider Nurse Practitioner Family
DX: Z00.00 Encounter for general adult medical examination without abnormal findings (principal); N20.0 Calculus of kidney; R31.29 Other microscopic hematuria; Z13.89 Encounter for screening for other disorder; R14.0 Abdominal distension (gaseous); R74.8 Abnormal levels of other serum enzymes; Z11.59 Encounter for screening for other viral diseases; Z79.810 Long term (current) use of selective estrogen receptor modulators (SERMs)
CPT/HCPCS: 36415; 81001; 81003; 83993; 86704; 86706; 86709; 86803; 87340; 88112

== ENCOUNTER 2025-03-01 09:53 | Outpatient (REF) | payer OTHER, SELFPAY ==
--- NOTE | ~2025-03-01 | FL_ITS ---
EXAMINATION: XR BARIUM SWALLOW CLINICAL INFORMATION: Abdominal distention. Dysphagia. COMPARISON: None available. TECHNIQUE: Upright barium swallow was performed with thick barium and barium coated saltine cracker. Thin barium was administered in prone lying position. FINDINGS: On oral administration of thick barium there is normal propagation bolus from the oral cavity through the pharynx, esophagus into stomach without any evidence of obstruction, narrowing or stricture. No laryngeal penetration or aspiration seen. There is no retention of barium in the valleculae or piriform sinus. On oral administration of saltine crackers and thin barium there is normal oral mastication and propagation bolus from the oral cavity, pharynx into esophagus and stomach without obstruction, narrowing or stricture. There is no gastroesophageal reflux or hiatal hernia. FLUOROSCOPY TIME: 2 minutes 12 seconds Dose area product:: 817 uGy-m2 (microgray-meter squared) FL/FL barium swallow IMPRESSION: Unremarkable barium swallow exam. Electronically signed by: Jamal Vogel MD 03/01/2025 02:40 PM EDT
--- OUTSIDE RECORDS SUMMARY | 2025-03-01 10:38 | XMS_ITS | Patient Health Record ---
Author Organization [facility] Address [address] [place] [address] Care Team Providers Care Commercial Front Load Operator Name Role Phone Nick Benites MD Primary Care Provider Yarely Dimple Kimball Unavailable [phone] Reason For Referral No Information Medications Medication [...] Insured Coverage Start Date Coverage End Date [facility] [address] [place] [address] [id number] Kerri Joseph Self - patient is the insured Medical (General) History Medical History History ICD Code Arthritis Back,Hip,and Knee pain Broken bones melanoma Headaches/Migraines Sciatica chronic sinusitis Chicken pox Surgical History Surgery Date(Month/Year) breast implants 2009 lymph node resection 2000 Knee arthroscopic 1993,1995,2011
--- OUTSIDE RECORDS SUMMARY | 2025-03-01 10:38 | XMS_ITS | Clinical Summary ---
Author Organization [facility] Address [address] [place] [address] Care Team Providers Care Hospice Nurse Name Role Phone Min Funes MD Primary Care Provider [phone] Active Problems Problem Noted Date Diagnosed Date BPPV (benign paroxysmal positional vertigo) 08/10 Overview (09/12/2023): Impression - [id number]: - Recent flare up of BPPV symptoms.; [...] appointment. Allergies 09/03/2020 Overview (09/12/2023): Impression - [id number]: - Referral sent to [facility]. Cerumen impaction 09/03/2020 Overview (09/12/2023): Impression - [id number]: - s/p successful right disimpaction. Social History [...] age to complete this topic Care Teams Hospice Nurse Relationship Specialty Start Date End Date Min Funes MD [address] [place] [address] PCP - General 03/15/23
--- OUTSIDE RECORDS SUMMARY | 2025-03-01 10:38 | XMS_ITS | Clinical Summary ---
Author Organization [facility] Address [address] [place] [address] Care Team Providers Care Binman Name Role Phone Unavailable Primary Care Provider [...]
--- OUTSIDE RECORDS SUMMARY | 2025-03-01 10:38 | XMS_ITS | Patient Health Record ---
Author Organization [facility] Address [address] [place] [address] Care Team Providers Care Wood Technologist Name Role Phone Patel Christofer Unavailable [phone] Reason For Referral No Information Plan Of Treatment No Information
== END 2025-03-01 09:54 | disposition home or self-care (01) ==
LOC: HO.XRAY 09:53
PROVIDERS: PCP Nurse Practitioner Family; Visit Provider Nurse Practitioner Family
DX: R14.0 Abdominal distension (gaseous) (principal)
CPT/HCPCS: 74220

== ENCOUNTER → 2025-03-01 09:55 | Outpatient (BNV) | payer OTHER, SELFPAY | PROVIDERS: PCP Nurse Practitioner Family; Visit Provider Radiology Diagnostic Radiology | DX: R13.10 Dysphagia, unspecified (principal) | CPT/HCPCS: 74220 ==

== ENCOUNTER 2025-03-22 08:03 | Outpatient (AMB) | payer OTHER, SELFPAY ==
--- NOTE | 2025-03-22 08:09 | MHC.OFFVIS ---
Vital Signs 03/22/25 08:10 Height 5 ft Weight 125 lb BMI 24.4 BP 134/78 Blood Pressure Location Rt brachial Position Sitting Pulse 62 Pulse Source Pulse Oximeter Pulse Oximetry (%) 98 Oxygen Delivery Method Room Air Intake Visit Reasons: discuss labs br swallow Intake Note: Patient follow up for lab/Barium swallow results Patient cc: Pt denies any GI changes or new sx since last visit. Certified Master Locksmith Required: No Accompanied by: Self / Same As Patient Allergies No Known Allergies Allergy (Verified 03/22/25 08:09) Medication List - Last Reconciled 03/22/25 by Christine Henderson CNP estradiol-norethindrone acet 1-0.5 mg tabs PO DAILY famotidine 20 mg PO DAILY PRN fluticasone propionate 50 mcg/actuation 1 spray intranasal DAILY PRN polyethylene glycol 3350 (Miralax) 17 grams PO DAILY 30 days propranolol ER 60 mg PO BEDTIME HPI HPI discuss labs br swallow: Details: Patient is a 59-year-old female with PMH of vitamin-D deficiency and GERD. F/U for sx of bloating, gas, irregular bowel movements and globus sensation. Barium swallow ordered for globus sensation, showed no abnormalities (e.g., reflux, hernia). Labs ordered for celiac and inflammatory markers, both WNL. Bloating and gas remain persistent. Pt describes episodic loose stools followed by constipation lasting up to a week. Reports food sensitivity triggers (e.g., dairy, potentially gluten, certain aged foods) and occasional IBS-like episodes after meals; also notes relief of abdominal gas pain post-BMs. Pt previously trialed strict adherence to low FODMAP diet, found it somewhat helpful but unable to fully resolve sx. Reports no hematochezia or unintended weight loss. Pt's diet includes processed dairy-free foods but hydration is suboptimal (reports consuming ~24 oz water/d). Stool profile fluctuates between normal (type 4) and diarrhea (types 6?7). Discussed hormonal changes likely related to menopause and potential triggering effects. Liver enzymes showed mild elevation, and pt's primary care ordered follow-up US, pending results. [facility] Medical History Pelvic pain in female Pelvic pain BCC (basal cell carcinoma of skin) Patellofemoral chondrosis of right knee Sinusitis History of postoperative nausea and vomiting Hx of malignant melanoma Arthritis Lab test negative for COVID-19 virus GERD (gastroesophageal reflux disease) History of palpitations Surgical History (Updated 03/22/25 @ 08:15 by LIZZIE Payne) H/O liposuction H/O colonoscopy Hx of arthroscopy of knee Hx of breast augmentation Hx of melanoma excision Family History Other Mental health disorder Social History Housing: House Patient Tobacco Use Status: Former Tobacco user Tobacco use type: Cigarette Years Smoked: 2 years e-Cigarette/Vaping Use: Never Used Second Hand Smoke Exposure: No Current occupational status: employed Cognitive needs: No Hearing needs: No Vision needs: No Review of Systems Const Reports as per HPI ENT Reports as per HPI Card Reports as per HPI Resp Reports as per HPI GI Reports as per HPI Reports as per HPI Physical Exam Vital Signs: Last Vital Signs Pulse 62 03/22/25 08:10 BP 134/78 03/22/25 08:10 Pulse Ox 98 03/22/25 08:10 Oxygen Delivery Method Room Air 03/22/25 08:10 BMI result Body Mass Index 24.4 Const General: healthy appearing, no acute distress and well developed Nutritional Appearance: average body habitus Orientation/consciousness: patient oriented x3 HEENT Head: Yes normal to inspection, Yes normocephalic and Yes atraumatic Face and sinus: Yes normal facial exam Eyes General: appearance normal, both eyes and all related structures Neck Neck: Yes normal visual inspection Resp Effort & Inspection: normal respiratory effort, able to speak in complete sentences, no tracheal deviation and symmetric chest movement Auscultation: clear to auscultation bilaterally Cardio Jugular venous distension: no JVD Rate: regular rate Rhythm: regular rhythm Heart sounds: S1 normal heart sound present, S2 normal heart sound present, no gallops and no murmurs GI Inspection: Yes normal to inspection and No distended Palpation (GI): Soft to palpation, not firm, nontender and No hepatosplenomegaly present Auscultation: Hyperactive bowel sounds present Neuro General: patient oriented x3 Gait exam (Neuro): Normal gait present Psych Appearance: grossly normal Mental Status: mental status grossly normal Speech and movement: Normal speech and movement present Affect: normal affect Attitude: cooperative Thought process: Normal thought process present Thought content: Normal thought content present Insight: Good insight present (Psych) Judgement: Good judgement present (Psych) Assessment & Plan Assessment & Plan (1) Bloating: Code(s): R14.0 - Abdominal distension (gaseous) Category: Medical Plan: Persistent, stable sx with intermittent flares (constipation/diarrhea, bloating, gas). Ongoing sx despite dietary modifications and journaling; hydration suboptimal; incomplete response to low FODMAP. Additional Testing: None at this time; continue to monitor for red flag sx. Medications: -Initiate PEG 3350 (Miralax) powder, titrate to effect?use daily when constipated, hold if loose stools. -Continue simethicone prn for gas/bloating (pt reports limited benefit; may trial alternative OTC agents as needed). Lifestyle Recommendations: -Reinforce food/sx journaling?focus on detailed tracking of all ingredients, preparation, and timing. -Trial structured elimination diet: 2?3 wks dairy-free, then reintroduce; repeat with gluten if no improvement. -Gradually increase dietary fiber via whole foods (caution: may ? bloating; titrate as tolerated). -Hydration: Target >=64 oz water/day. -Encourage daily physical activity (e.g., postprandial walks). -Provided education on IBS management, elimination diet, and hydration. (2) GERD (gastroesophageal reflux disease): Code(s): K21.9 - Gastro-esophageal reflux disease without esophagitis Category: Medical Qualifiers: Esophagitis presence: esophagitis presence not specified Qualified Code(s): K21.9 - Gastro-esophageal reflux disease without esophagitis Plan: Stable, intermittent sx; managed with prn H2RA (famotidine). Sx well controlled except with known dietary triggers. Medications: Continue famotidine prn. Lifestyle Recommendations: Avoid known triggers (tomato, pepperoni, etc.). Follow-Up Plan: Monitor for change in frequency/severity. (3) Elevated liver enzymes: Code(s): R74.8 - Abnormal levels of other serum enzymes Category: Medical Plan: Mild, persistent increase AST/ALT; asymptomatic. Etiology unclear; not meeting criteria for metabolic syndrome, negative hepatitis panel; US and autoimmune w/u pending. Additional Testing: -Abdominal US (pending). -Autoimmune hepatitis panel (ordered). Medications: None specific at this time. Lifestyle Recommendations: -Minimize alcohol intake. -Continue healthy weight maintenance. -Limit saturated fats; monitor cholesterol. Referrals / Coordination of Care:Coordinate with PCP for hepatitis B immunization (pt non-immune). Follow-Up Plan:Review US and autoimmune labs at next visit or sooner if abnormal Plan Follow-up 3 months or sooner as needed Time: I spent a total of 50 minutes on the date of encounter which includes: Preparing to see the patient (reviewed previous documentation, test results and medical history) Performing a medically appropriate exam and/or evaluation Ordering medications, tests, and procedures Documenting clinical information in the health record Orders: Orders Mitochondrial Antibody 03/22/25 R74.8 - Abnormal levels of other serum enzymes Prothrombin Time INR 03/22/25 R74.8 - Abnormal levels of other serum enzymes ANNELIESE Reflex Titer and Pattern 03/22/25 R74.8 - Abnormal levels of other serum enzymes Ferritin 03/22/25 R74.8 - Abnormal levels of other serum enzymes Lipase 03/22/25 R74.8 - Abnormal levels of other serum enzymes Smooth Muscle Antibody 03/22/25 R74.8 - Abnormal levels of other serum enzymes Hepatitis A IgG 03/22/25 R74.8 - Abnormal levels of other serum enzymes Alpha Fetoprotein 03/22/25 R74.01 - Elevation of levels of liver transaminase levels Medications: New polyethylene glycol 3350 (Miralax) Take 17G (one cap full) daily with 8oz of water 17 grams PO DAILY 510 grams 2RF constipation 30 days Coding Level of Care Code Established Pt Est Pt Level 5 (23263) Patient Type Established Diagnoses Bloating R14.0 Gastroesophageal reflux disease, unspecified whether esophagitis present K21.9 Esophagitis presence: esophagitis presence not specified Elevated liver enzymes R74.8
[2025-03-22 08:10] VITALS: BP 134/78; PULSE 62; O2SAT 98; BMI 24.4
== END 2025-03-22 09:00 | disposition home or self-care (01) ==
LOC: HO.HGI 08:05
PROVIDERS: PCP Nurse Practitioner Family; Visit Provider Nurse Practitioner Family
DX: R14.0 Abdominal distension (gaseous) (principal); K21.9 Gastro-esophageal reflux disease without esophagitis; R74.01 Elevation of levels of liver transaminase levels
CPT/HCPCS: 99215

== ENCOUNTER 2025-04-17 08:01 | Outpatient (REF) | payer OTHER, SELFPAY ==
--- NOTE | ~2025-04-17 | US_ITS ---
EXAMINATION: US ABDOMEN COMPLETE CLINICAL INFORMATION: R74.8. Abnormal levels of other serum enzymes.. COMPARISON: Correlated to renal ultrasound dated June 22, 2024 and abdominal aorta ultrasound dated February 13, 2020. TECHNIQUE: Real-time ultrasound of the abdomen using grayscale technique. FINDINGS: PANCREAS: No peripancreatic fluid collections. No main pancreatic ductal dilatation. ABDOMINAL AORTA: The proximal, mid, and distal segments are normal in caliber. INFERIOR VENA CAVA: Visualized portions are normal. LIVER: Liver measures 13 cm per technologist. No nodular surface. Coarse echotexture. No gross solid or cystic lesion detected. No intrahepatic biliary ductal dilatation. GALLBLADDER: Fluid-filled nondistended. No pericholecystic fluid collection or gallbladder wall thickening. COMMON BILE DUCT: 3 mm. RIGHT KIDNEY: 10 cm. Normal echotexture. Normal renal cortical thickness. No hydronephrosis. No solid or cystic lesion detected.. LEFT KIDNEY: 11 cm. Normal echotexture. Normal renal cortical thickness. No hydronephrosis. No gross solid or cystic lesion. SPLEEN: 9 cm. No focal mass.. FREE FLUID: None. US/US abdomen complete IMPRESSION: No cholelithiasis or gross choledocholithiasis. No hydronephrosis. No ascites. Normal-sized liver and spleen. Electronically signed by: Gennaro Oreilly MD 04/17/2025 09:24 AM EDT
--- OUTSIDE RECORDS SUMMARY | 2025-04-17 08:33 | XMS_ITS | Clinical Summary ---
Author Organization [facility] Address [address] [place] [address] Care Team Providers Care Coupon Collection Clerk Name Role Phone Unavailable Primary Care Provider [...]
--- OUTSIDE RECORDS SUMMARY | 2025-04-17 08:33 | XMS_ITS | Clinical Summary ---
Author Organization [facility] Address [address] [place] [address] Care Team Providers Care Sanitation Worker Cleaning Equipment Name Role Phone Min Funes MD Primary Care Provider [phone] Active Problems Problem Noted Date Diagnosed Date [...] appointment. Allergies 09/03/2020 Overview (09/12/2023): Impression - [id number]: - Referral sent to [facility]. Cerumen impaction 09/03/2020 Overview (09/12/2023): Impression - [id number]: - s/p successful right disimpaction. Social History [...] COVID-19 Vaccine ( - 2023-2 5 season) 2025 Influenza (#1) 2025 HPV Vaccine (No Doses Required) Completed Hep A Aged Out No longer eligi ble based on patient's age to complete this topic Hib Aged Out No longer eligi ble based on patient's age to complete this topic Meningococcal ACWY Aged Out No longer eligible based on patient's age to complete this topic Care Teams Sanitation Worker Cleaning Equipment Relationship Specialty Start Date End Date Min Funes MD [address] [place] [address] PCP - General 03/15/23
--- OUTSIDE RECORDS SUMMARY | 2025-04-17 08:33 | XMS_ITS | Patient Health Record ---
Author Organization [facility] Address [address] [place] [address] Care Team Providers Care Braille And Talking Books Clerk Name Role Phone Nick Benites MD Primary Care Provider Yarely Dimple Kimball Unavailable [phone] Reason For Referral No Information Medications Medication [...] primary osteoarthritis of the ankle and/or foot ([id number]) Primary osteoarthrit is, right ankle and foot (M19.071) Active confirmed Plan Of Treatment No Information Insurance Providers Payer Name Payer Address Payer Phone Subscriber Number Group Number Insured Name Patient Relationship to Insured Coverage Start Date Coverage End Date [facility] [address] [place] [address] [id number] Kerri Joseph Self - patient is the insured Medical (General) History Medical History History ICD Code Arthritis Back,Hip,and Knee pain Broken bones melanoma Headaches/Migraines Sciatica chronic sinusitis Chicken pox Surgical History Surgery Date(Month/Year) breast implants 2008 lymph node resection 2000 Knee arthroscopic 1993,1995,2011
--- OUTSIDE RECORDS SUMMARY | 2025-04-17 08:33 | XMS_ITS | Patient Health Record ---
Author Organization [facility] Address [address] [place] [address] Care Team Providers Care Supervisor Blood Name Role Phone Patel Christofer Unavailable [phone] Reason For Referral No Information Plan Of Treatment No Information
[2025-04-17 08:57] LABS: INTERNATIONAL NORM RATIO 0.9 (0.9-1.1); Prothrombin Time 10.0 SEC (10.9-12.4)
[2025-04-17 09:25] LABS: Lipase 17 U/L (8-78)
[2025-04-17 09:34] LABS: Ferritin 102 ng/mL (10-250)
[2025-04-20 08:17] LABS: ~Hepatitis A Antibody IgG 0.32 S/CO (0.00-0.99)
[2025-04-24 09:28] LABS: Anti Nuclear Antibody Pattern Nuclear, Homogeneous; Anti Nuclear Antibody Screen POSITIVE (NEGATIVE); Anti Nuclear Antibody Titer 1:40 titer
== END 2025-04-17 08:02 | disposition home or self-care (01) ==
LOC: HO.US 08:01
PROVIDERS: Absent Provider Nurse Practitioner Family; PCP Nurse Practitioner Family; Referring Provider Nurse Practitioner Family; Visit Provider Nurse Practitioner Family
DX: Z11.59 Encounter for screening for other viral diseases (principal); Z01.84 Encounter for antibody response examination; N20.0 Calculus of kidney; R74.8 Abnormal levels of other serum enzymes; R74.01 Elevation of levels of liver transaminase levels
CPT/HCPCS: 36415; 76700; 82105; 82728; 83690; 85610; 86015; 86038; 86039; 86381; 86708

== ENCOUNTER → 2025-04-17 08:58 | Outpatient (BNV) | payer OTHER, SELFPAY | PROVIDERS: Absent Provider Nurse Practitioner Family; PCP Nurse Practitioner Family; Referring Provider Nurse Practitioner Family; Visit Provider Radiology Diagnostic Radiology | DX: R74.01 Elevation of levels of liver transaminase levels (principal) | CPT/HCPCS: 76700 ==

== ENCOUNTER 2025-05-22 07:28 | Outpatient (AMB) | payer OTHER, SELFPAY ==
--- NOTE | 2025-05-22 07:29 | A.OFFVIS_ITS ---
Intake Visit Reasons: 3m/US Intake Note: Patient is Present for 3 mo Follow Up Urology Med: PREMPRO Antibiotic Allergy: None Blood Thinner: None Imaging: Renal and Abd Ultrasound 04/2025 Dispute Specialist Required: No Accompanied by: Self / Same As Patient Allergies No Known Allergies Allergy (Verified 05/22/25 12:21) Medication List - Last Reconciled 05/22/25 by NOHEMI Zhang conj estrog-medroxyprogest liset 0.625-5 mg (Prempro) 1 tab PO DAILY famotidine 20 mg PO DAILY PRN fluticasone propionate 50 mcg/actuation 1 spray intranasal DAILY PRN polyethylene glycol 3350 (Miralax) 17 grams PO DAILY 30 days propranolol ER 60 mg PO BEDTIME HPI Comments Details: Kerri is a very pleasant 59-year-old female patient of Dr. Vela. She has a past medical history of basal cell carcinoma, malignant melanoma, sinusitis, arthritis, and GERD. She being followed up on today via video telehealth for her microscopic hematuria. In discussion with the patient today she reports to be doing and feeling well. She denies having had any bothersome urinary issues or concerns since her last office visit here. Recent abdominal imaging 05/03 noted bilateral kidneys are normal in echotexture and thickness. No hydronephrosis, renal calculi, or lesions noted. Previously retroperitoneal ultrasound 08/01 noted nonobstructing 3 mm stone. We did discuss correlation of nephrolithiasis in relation to microscopic hematuria. Previous urine cytology 05/02 & 03/02 Negative for high-grade urothelial carcinoma. We discussed potential causes of microscopic hematuria as well as further interventions and risks and benefits of these interventions. She does have a previous history of nicotine dependence from the age of 17 to 20 years old however she reports this was more socially and did not smoke many cigarettes at that time. She otherwise denies any bothersome urinary issues or concerns. When asked she denies urinary urgency, urinary frequency, incontinence, nocturia, hematuria, dysuria, foul smelling urine, changes to urinary stream, flank pain, fever, and or chills. She is happy with her current voiding parameters. She otherwise offers no other issues or concerns at this time. [facility] Medical History Pelvic pain in female Pelvic pain BCC (basal cell carcinoma of skin) Patellofemoral chondrosis of right knee Sinusitis History of postoperative nausea and vomiting Hx of malignant melanoma Arthritis Lab test negative for COVID-19 virus GERD (gastroesophageal reflux disease) History of palpitations Surgical History (Updated 03/22/25 @ 08:15 by LIZZIE Payne) H/O liposuction H/O colonoscopy Hx of arthroscopy of knee Hx of breast augmentation Hx of melanoma excision Family History Other Mental health disorder Social History Housing: House Patient Tobacco Use Status: Former Tobacco user Tobacco use type: Cigarette Years Smoked: 2 years e-Cigarette/Vaping Use: Never Used Second Hand Smoke Exposure: No Current occupational status: employed Cognitive needs: No Hearing needs: No Vision needs: No Review of Systems Const All systems reviewed & are unremarkable except as noted in HPI and below Physical Exam Const General: cooperative, healthy appearing, comfortable, no acute distress, well developed, alert and awake Limitations: no limitations Resp Effort & Inspection: normal respiratory effort and able to speak in complete sentences Psych Appearance: grossly normal and well kempt Mental Status: mental status grossly normal Speech and movement: Clear speech present Affect: normal affect Attitude: cooperative Thought content: Normal thought content present Insight: Fair insight present (Psych) Judgement: Fair judgement present (Psych) Telehealth Telehealth Telehealth Platform: [facility] Location of provider rendering services: practice address Location of patient: address on file Patient Identification confirmed using: Name, : Yes Telehealth method: video Patient verbally consented to treatment: Yes Patient verbally consented to billing insurance company: Yes Patient informed of any privacy concerns related to visit: Yes Minutes spent on Phone/Video with Pt.: 15 Results Reviewed Results Reviewed: Date of Service: 04/17/25 Procedure(s): US abdomen complete US ABDOMEN COMPLETE FINDINGS: PANCREAS: No peripancreatic fluid collections. No main pancreatic ductal dilatation. ABDOMINAL AORTA: The proximal, mid, and distal segments are normal in caliber. INFERIOR VENA CAVA: Visualized portions are normal. LIVER: Liver measures 13 cm per technologist. No nodular surface. Coarse echotexture. No gross solid or cystic lesion detected. No intrahepatic biliary ductal dilatation. GALLBLADDER: Fluid-filled nondistended. No pericholecystic fluid collection or gallbladder wall thickening. COMMON BILE DUCT: 3 mm. RIGHT KIDNEY: 10 cm. Normal echotexture. Normal renal cortical thickness. No hydronephrosis. No solid or cystic lesion detected. LEFT KIDNEY: 11 cm. Normal echotexture. Normal renal cortical thickness. No hydronephrosis. No gross solid or cystic lesion. SPLEEN: 9 cm. No focal mass.. FREE FLUID: None. IMPRESSION: No cholelithiasis or gross choledocholithiasis. No hydronephrosis. No ascites. Normal-sized liver and spleen. Assessment & Plan Assessment & Plan (1) Microscopic hematuria: Code(s): R31.29 - Other microscopic hematuria Category: Medical (2) Nephrolithiasis: Code(s): N20.0 - Calculus of kidney Category: Medical Plan Recent abdominal ultrasound results reviewed with the patient today; as noted above. We did discussed potential causes of microscopic hematuria as well as further interventions and risks and benefits of these interventions. All questions were answered. She currently denies any bothersome urinary issues or concerns. She reports be happy with current voiding parameters. Will continue with surveillance monitoring. Follow-up in 1 year; or sooner with any issues, concerns, and or questions. Patient Instructions: The patient had an opportunity to ask questions regarding the treatment plan. All questions were answered. Physical exam, labs, and imaging were discussed and reviewed in detail. As well as risks, benefits, and discussion of treatment choices. No major barriers to understanding were identified. The patient expressed understanding and agreement with the above treatment plan. The patient was made aware they should contact our office by phone for worsening of their current condition, the appearance of new symptoms, or with any questions or concerns. Compliance is encouraged with any medications and follow up testing that is ordered. It is a privilege to be allowed the opportunity to participate in? your urological care.? Again, if you have any questions or concerns If you have any questions or concerns please do not hesitate to contact me. The office is [phone]. This note is constructed using voice recognition software. While every effort has been made to ensure accuracy curb builder errors may have been included. Yours sincerely, NOHEMI Zhang Coding Level of Care Code Tele Est Pt Level 3 (86706) Diagnoses Microscopic hematuria R31.29 Nephrolithiasis N20.0
--- OUTSIDE RECORDS SUMMARY | 2025-05-22 07:30 | XMS_ITS | Clinical Summary ---
Author Organization [facility] Address [address] [place] [address] Care Team Providers Care Roller Coaster Operator Name Role Phone Min Funes MD Primary Care Provider [phone] Active Problems Problem Noted Date Diagnosed Date BPPV (benign paroxysmal positional vertigo) 08/10 Overview (09/12/2023): Impression - 03Sep2020: - Recent flare up of BPPV symptoms.; - [place] Hall[place] was negative bilaterally.; - Ameena maneuver handout provided to try at home if symptoms recur.; - Follow up as needed if vertigo does not improve. Hearing loss 09/03/2020 Overview (09/12/2023): Impression - 03Sep2020: - Audiogram; I will call her with the results of this.; - She will bring her old hearing test to appointment. Allergies 09/03/2020 Overview (09/12/2023): Impression - [id number]: - Referral sent to [facility]. Cerumen impaction 09/03/2020 Overview (09/12/2023): Impression - [id number]: - s/p successful right disimpaction. Social History [...] (Shingrix) (1 of 2) 2016 COVID-19 Vaccine (2024-2 6 season) 2025 Influenza (#1) 2025 HPV Vaccine (No Doses Required) Completed Hep A Aged Out No longer eligi ble based on patient's age to complete this topic Hib Aged Out No longer eligi ble based on patient's age to complete this topic Meningococcal ACWY Aged Out No longer eligible based on patient's age to complete this topic Care Teams Roller Coaster Operator Relationship Specialty Start Date End Date Min Funes MD [address] [place] [address] PCP - General 03/15/23
--- OUTSIDE RECORDS SUMMARY | 2025-05-22 07:30 | XMS_ITS | Clinical Summary ---
Author Organization [facility] Address [address] [place] [address] Care Team Providers Care Health Underwriter Name Role Phone Unavailable Primary Care Provider [...]
== END 2025-05-22 08:11 | disposition home or self-care (01) ==
LOC: HO.HUSH 07:28
PROVIDERS: PCP Nurse Practitioner Family; Visit Provider Nurse Practitioner Family
DX: R31.29 Other microscopic hematuria (principal); N20.0 Calculus of kidney
CPT/HCPCS: 99213